=== PATIENT | female | born 1975 | race Caucasian/White ===

== ENCOUNTER 2022-05-08 13:45 | Outpatient (CLI) | payer BC, SELFPAY ==
--- OUTSIDE RECORDS SUMMARY | 2022-05-08 13:49 | XMS_ITS | Encounter Summary ---
:1975 Author Organization [facility] Address [address] [place] [address] Care Team Providers Name Role Phone Brain Benoit MD Primary Care Provider Reason for Visit Reason Comments EDEMA Encounter Details Date Type Department Care Team Description 01/28/2012 Office Visit [facility] Aide Smart Pain, joint, hand (Primary Dx); Medicine Swelling of limb [address] [place] [phone] Social History Tobacco Use Types Packs/Day Years Used Date Smoking Tobacco: Never Assessed Sex Assigned at Date Recorded Not on file documented as of this encounter Last Filed Vital Signs Vital Sign Reading Time Taken Comments Blood Pressure 105/68 01/28/2012 6:15 PM CDT Pulse 68 01/28/2012 6:15 PM CDT Temperature 37 ??C (98.6 ??F) 01/28/2012 6:15 PM CDT Respiratory Rate 16 01/28/2012 6:15 PM CDT Oxygen Saturation - - Inhaled Oxygen Concentration - - Weight - - Height - - Body Mass Index - - documented in this encounter Progress Notes Aide Smart - 01/29/2012 8:03 AM CDT Subjective: Chief complaint: Chief Complaint Patient presents with ??? Edema hands and feet last Friday Arelis Mckenna is an 36 y.o. female who presents to the clinic for evaluation of joint pain x1 week. Patient reports one week ago she noticed swelling in her hands between her fingers and feet the next dayshe had pain in the joints of her hands, wrists elbows feet and ankles. She denies any pain or problem in her back, shoulders or hips. She started taking Zyrtec incase she had allergies without relief then she tried taking Advil, Tylenol, and Aleve without relief she finally took Vicodin which provided some relief. She reports as the week went on swelling decrease and is normal now but she continued to have joint pain now the pain is only in her finger joints. She denies a history of arthritis, joint pain, autoimmune disease or edema. She reports her mother has osteoarthritis otherwise no family history of rheumatoid arthritis or autoimmune diseases. Associated symptoms include 1 week ago she had a sore throat, fever with a negative strep test, these symptoms have since resolved, denies fever, night sweats or weight loss. She denies noticing a rash or change in skin. She reports having insect bits occasionally she is outside often, but no tick bites that she noticed. Denies history of chronic pain. She is UTD on immunizations. She reports she is very health conscious she eats all her organic foods she does not eat meat, dairyor eggs but she does supplement with vitamins. 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 She lives with her and children. Denies tobacco or alcohol use. Review of Systems - History obtained from the patient General ROS: negative Psychological ROS: negative Ophthalmic ROS: negative ENT ROS: negative Allergy and Immunology ROS: negative Hematological and Lymphatic ROS: negative Endocrine ROS: negative Respiratory ROS: negative Cardiovascular ROS: negative Gastrointestinal ROS: negative Genito-Urinary ROS: negative Musculoskeletal ROS: positive for - joint pain, joint stiffness and joint swelling Neurological ROS: negative Dermatological ROS: negative Other than above, complete review of systems are negative. History reviewed. No pertinent past medical history. Medications reviewed in EMR Adverse drug reactions: No known drug allergies and Other Immunizations: Immunization History Administered Date(s) Administered ??? H1N1 Influenza Virus 0.5ml 09/12/2009 ??? Influenza LAIV (2-49 yrs) 07/14/2009 ??? TDAP (Boostrix) 02/25/2009 Vital signs: BP 105/68 Pulse 68 Temp(Src) 98.6 ??F (37 ??C) (Oral) Resp 16 Objective: Vital signs reviewed General- Patient in no acute distress, well-groomed, pleasant, appears healthy. Does not appear anxious or depressed. Head- normocephalic, atraumatic Eyes- PERRL, lids and sclera normal Ears- TM intact, opaque, non bulging, canal normal. Nose- patent, no rhinorrhea Oropharynx- no thrush or exudate noted. Tonsils nonenlarged, uvula midline. Neck- supple, no adenopathy, no thyromegaly Lungs- clear to ausculation bilaterally. Cardiovascular- regular rate and rhythm. Normal S1 and S2. No S3, S4 or murmurs. CR <2 sec. Abdomen- positive bowel sounds, nontender, nondistended, soft, no organomegaly. Extremities- no cyanosis, clubbing, or edema. Peripheral pulses intact of radial pulse and DP pulse. Skin- warm and dry, no rashes noted. Neurological- alert and oriented. Cranial nerves II-XII grossly intact. Sensation intact to light touch. Strength 5/5 bilaterally. Patellar DTR 2+ Musculoskeletal- No visual deformity of hand. no joint swelling redness or warmth. Tenderness with palpation over the DIP and PIP joints, normal flexion, tenderness with extension of phalanges. No tenderness in MCP joints or wrists. Weakness noted bilaterally with nursing educator strength. Normal active and passive range of motion of wrist and elbow. Foot, knee and ankle exam essentially normal joints are nontender no swelling or erythema normal active and passive range of motion, 5 of 5 strength bilaterally of lower extremities. Lab/imaging: Pending RF, DINESH, CMP, Lyme Disease screen, ESR, vitamin D Assessment: Joint pain, acute Plan: Discussed differential diagnosis and lab work with the patient, will check RF, DINESH, kidney, liver, electrolytes, lyme screening. She has a history of low vitamin D will recheck. Discussed possibility of joint pain after viral illness which generally will resolve with symptomatic care. Patient agrees with the plan. She request pain medication. Rx Vicodin 5-500mg PO 1-2 tablets at night for night time pain, Rx for 15 tablets. Side effect profile reviewed, sedation precaution. No work or driving with medication, no extra tylenol with medication. Use only for break through pain due to addictive properties. Use ibuprofen or tylenol as directed for pain, may use cool pack for pain, especially after typing. Encouraged fluids, rest. If lab results are normal and pain continues I will refer the patient torheumatology. RTC p.r.n. if not gradually improving, sooner p.r.n.. The patient was discharged in stable condition. All questions answered. Patient in agreement with the plan. documented in this encounter Plan of Treatment Not on filedocumented as of this encounter Visit Diagnoses Diagnosis Pain, joint, hand - Primary Pain in joint, hand Swelling of limb documented in this encounter Care Teams Taxation Inspector Relationship Specialty Start Date End Date Brain Benoit MD PCP - General 01/01/11 04/10/14 [address] [place] [address] documented as of this encounter
--- OUTSIDE RECORDS SUMMARY | 2022-05-08 13:49 | XMS_ITS | Encounter Summary ---
:1975 Author Organization [facility] Address [address] [place] [address] Care Team Providers Name Role Phone Brain Benoit MD Primary Care Provider Encounter Details Date Type Department Care Team Description 05/25/2010 Office Visit [facility] Una Cosby APRN, [facility] [address] [address] [place] [address] [place] [address] [phone] (Wo rk) Social History Tobacco Use Types Packs/Day Years Used Date Smoking Tobacco: Never Assessed Sex Assigned at Date Recorded Not on file documented as of this encounter Last Filed Vital Signs Vital Sign Reading Time Taken Comments Blood Pressure 104/78 05/25/2010 3:27 PM CDT Pulse 68 05/25/2010 3:27 PM CDT Temperature 36.7 ??C (98.1 ??F) 05/25/2010 3:27 PM ORAL C: 3 6.7 C CDT Respiratory Rate - - Oxygen Saturation - - Inhaled Oxygen Concentration - - Weight 67.6 kg (148 lb 15.8 05/25/2010 3:27 PM C: 67.6k g oz) CDT Height - - Body Mass Index 22 04/17/2010 3:08 PM CDT documented in this encounter Progress Notes Una Cosby APRN, TABLEAU ANALYST - 05/25/2010 12:01 AM CDT Progress Notes signed by MARSHA Lorenzo at 06/21/10 1031 Author: MARSHA Lorenzo Service: (none) Author Type: (none) Filed: 01/20/11 0053 Note Time: 05/25/10 0001 Status: Signed Chief Deputy Clerk/Bailiff: MARSHA Lorenzo (Nurse Practitioner) NAME: ARELIS MCKENNA MR#: [id number] ACCT: [id number] VISIT: [id number] DICTATING CLINICIAN: MARSHA Lorenzo CONFIRM #: [id number] LOC: 506 CLINIC PROGRESS NOTE DATE OF VISIT: 05/25/2010 : 1975 A 34-year-old woman in clinic today with concerns regarding sinus congestion. HISTORY OF PRESENT ILLNESS: Arelis said that her symptoms started about 5 days ago when she started having some sinus pressure and had a mild headache. Her throat felt kind of swollen. No painful swallowing. Some ear congestion and just over the last 2 days she says sometimes when she takes a real deep breath she has kind of a burning sensation in the substernal airway. MEDICATIONS: Not using any wrle-tiv-msnglqo medications right now. Loestrin FE, fluoxetine. REVIEW OF SYSTEMS: No fever, chilling or body aches. PAST MEDICAL HISTORY: No history of chronic illness. MEDICATION ALLERGIES: None known. SOCIAL HISTORY: with children. Nonsmoker. OBJECTIVE: VITAL SIGNS: Blood pressure 104/78, temperature 98.1, pulse 68, weight 149. GENERAL: Arelis does not appear acutely ill. She is alert and oriented x3. SKIN: Warm, dry and nondiaphoretic. HEENT: EYES: Conjunctivae clear and JULIA. EARS: Left TM somewhat injected. No distortion of landmarks. No canal erythema or edema. No tragus or pinna pain. Right TM pearly romeo without distortion. No canal involvement, tragus, or pinna pain. Nasal passages non-hyperemic. Some clear coryza noted. No frontal or maxillary tenderness with percussion. Posterior pharynx without erythema, edema, or tonsillar enlargement. NECK: Supple without lymphadenopathy. No thyroid enlargement, nodularity or tenderness. LUNGS: Clear. No wheezes, rales or rhonchi. CARDIOVASCULAR: S1, S2. Rate and rhythm regular without murmur. ASSESSMENT: Probable allergic rhinitis. PLAN: She is encouraged to begin use of vthw-sew-ujtwofc either loratadine or Zyrtec once daily over the course of the next 10 days to 2 weeks to see if that makes a difference for her. Mucinex 600 mg 1 tablet twice a day. Increase fluids. Warm, steamy showers and use Advil or Aleve as comfort measure. She is in agreement with this plan. LAE:MEDQ C: CONFIRM #: [id number] documented in this encounter Plan of Treatment Not on filedocumented as of this encounter Visit Diagnoses Not on filedocumented in this encounter Care Teams Expansion Joint Finisher Relationship Specialty Start Date End Date Brain Benoit MD PCP - General 01/01/11 04/10/14 [address] [facility] [place] [address] documented as of this encounter
--- OUTSIDE RECORDS SUMMARY | 2022-05-08 13:49 | XMS_ITS | Encounter Summary ---
:1975 Author Organization [facility] Address [address] [place] [address] Care Team Providers Name Role Phone Brain Benoit MD Primary Care Provider Reason for Visit Reason Comments Other Encounter Details Date Type Department Care Team Description 02/20/2011 Telephone [facility] Brain Vo MD Other [address] [facility]. [address] [place] [address] [place] [address] [phone] (Wo rk) Social History Tobacco Use Types Packs/Day Years Used Date Smoking Tobacco: Never Assessed Sex Assigned at Date Recorded Not on file documented as of this encounter Progress Notes Kathy Castañeda RN - 02/20/2011 10:14 AM CDT CLINICIAN FOLLOW-UP: none IMPRESSION: Neurologic Deficit. SYMPTOMS: Patient calling; reports that she sustained a bug bite to her left hip on 02/16/11, her hip did become swollen and tender to touch, pt [facility] few months back, pt did start this rx on 02/17/11, swelling in her hip has decreased, yesterday pt started to notice numbness in her right leg, that comes and goes, denies weakness or numbness in her face or arms, no other sx's. Denies 911/ER symptoms Problem List: reviewed in electronic medical record. CARE ADVICE: Care deferred to appt Advised to call back if any of the following occur: symptoms worsen or persist, any other questions or concerns. PLAN: SEE WITHIN 2 HOURS Patient/Caller agrees with plan and denies additional questions. References Used: [facility] Adult Telephone Protocols--Neurologic Deficit. Call Complete. *SH~THOMP~NEURODEF ~ Created on 20Feb2011 10:14am by KATHY CASTAÑEDA documented in this encounter Plan of Treatment Not on filedocumented as of this encounter Visit Diagnoses Not on filedocumented in this encounter Care Teams Dining Service Supervisor Relationship Specialty Start Date End Date Brain Benoit MD PCP - General 01/01/11 04/10/14 [facility] [place] [address] documented as of this encounter
--- OUTSIDE RECORDS SUMMARY | 2022-05-08 13:49 | XMS_ITS | Clinical Summary ---
:1975 Author Organization [facility] Address [address] [place] [address] Care Team Providers Name Role Phone Doron Crow Primary Care Provider Source Comments You are receiving this document as you are listed as the primary care provider,follow-up provider, or the patient has been referred to you for consultation.This is in compliance with the Medicare and Medicaid EHR Incentive Program,which states Providers who transition their patient to another setting of careor provider of care or refers their patient to another provider of care shouldprovide summarycare record for each transition of care or referral. [employer] Allergies Active Allergy Reactions Severity Noted Date Comments Other 02/16/2009 PN: -eucalyptus (Facial swelling) Medications Medication Sig Dispensed Refills Start Date End Date Status Multiple Take 1 tablet 0 2011 Activ e Vitamins-Minerals (MULTI by mouth daily FOR HER OR) (every 24 hours). cholecalciferol (AKA Take 1,000 0 02/19/2012 Active VITAMIN D3) 1000 UNITS Units by mouth tablet daily (every 24 hours). ibuprofen (MOTRIN) 400 MG Take 400 mg by 0 2 Active tablet mouth every 6 hours as needed. doxycycline (VIBRAMYCIN) Take 50 mg by 0 Active 50 MG capsule mouth two times a day. ALBUterol sulfate HFA 108 Inhale 1-2 0 Active (90 BASE) MCG/ACT inhaler Puffs every 4 hours as needed for Wheezing. Active Problems Problem Noted Date Migraine 02/19/2012 Overview: Migraine, light induced. Immunizations Name Administration Dates Next Due H1n1 Miv Sanofi 3+ Yr (Injected) 09/12/2009 HepA-HepB (TWINRIX, 18+ yrs) 04/28/2012, 02/19/2012 Influenza IIV4 (Quadrivalent) 0.5mL (90968) 07/19/2016 Influenza LAIV (Nasal, 2-49 yrs) 07/14/2009 TDAP (BOOSTRIX) 02/25/2009 Family History Medical History Relation Name Comments Hypertension Father Hypertension Mother Coronary Artery Disease Paternal Grandfather Hypertension Paternal Grandfather Stroke Paternal Grandfather Coronary Artery Disease Paternal Grandmother Hypertension Paternal Grandmother Stroke Paternal Grandmother Diabetes, Type II Paternal Uncle Cancer Negative Family History Relation Name Status Comments Father Alive Mother Alive Brother 1 Alive Brother 2 Alive Brother 3 Alive Daughter 1 Elisa Alive 1997 (from 1st m ) Daughter 2 Edita Alive 2003 Maternal Grandfather Maternal Grandmother Alive Paternal Grandfather Paternal Grandmother Paternal Uncle Sister Alive Son Raul Alive 1999 (from m ) Social History Tobacco Use Types Packs/Day Years Used Date Smoking Tobacco: Former Cigarettes 0.3 2 Quit : 09/29/1998 Smokeless Tobacco: Never Comments: Quit smoking: Alcohol Use Standard Drinks/Week Comments Yes 1 (1 standard drink = 0.6 oz pure Alcoho lic Drinks/day: Amount:1-2 alcohol) drinks; Freq:=< Flakito hly; Alcohol Habits Answer Date Recorded How often do you have a drink Not asked containing alcohol? How many drinks containing alcohol Not asked do you have on a typical day when you are drinking? How often do you have six or more Not asked drinks on one occasion? Comment: Alcoholic Drinks/day: Amount:1-2 016 drinks; Freq:=< Monthly; Sex Assigned at Date Recorded Not on file Last Filed Vital Signs Vital Sign Reading Time Taken Comments Blood Pressure 110/80 07/19/2016 3:03 PM CDT Pulse 72 07/19/2016 3:03 PM CDT Temperature 37.1 ??C (98.8 ??F) 04/11/2014 3:55 PM CDT Respiratory Rate 20 09/17/2012 4:38 PM SUBSTATION DESIGN DRAFTSPERSON Oxygen Saturation 98% 09/17/2012 4:38 PM SUBSTATION DESIGN DRAFTSPERSON Inhaled Oxygen Concentration - - Weight 77.1 kg (170 lb) 07/19/2016 3:03 PM CDT Height 174 cm (5' 8.5) 09/16/2012 8:53 AM SUBSTATION DESIGN DRAFTSPERSON Body Mass Index 25.47 09/16/2012 8:53 AM SUBSTATION DESIGN DRAFTSPERSON Plan of Treatment Health Maintenance Due Date Last Done Comments Colon Cancer Screening Plan 1975 Due Hep C Screening (Preventive 1975 Services) COVID-19 Vaccine (#1) 03/27/1977 HIV Screening (Preventive 1992 Services) Adult Preventive Visit 1994 Cervical Cancer Screening Due 04/14/2010 04/13/2010, 02/25/2009 HepA (3 of 3 - Hep A Twinrix 09/28/2012 04/28/2012, risk 3-dose series) 02/19/2012 HepB (3) 09/28/2012 04/28/2012, 02/19/2012 DTaP/Tdap/Td (2 - Tdap) 02/25/2019 02/25/2009 Cholesterol 2021 02/25/2009 Influenza (#1) 2022 07/19/2016, 07/14/2009 Zoster/Shingles (1 of 2) 2026 HPV Vaccine Aged Out No longer eligib le based on patient's age to complete this to pic Hib Aged Out No longer eligib le based on patient's age to complete this to pic IPV (Polio) Aged Out No longer eligib le based on patient's age to complete this to pic MCV4 Aged Out No longer eligib le based on patient's age to complete this to pic Pneumococcal Aged Out No longer eligib le based on patient's age to complete this to pic Insurance Payer Benefit Plan / Subscriber ID Effective Dates Phone Addre ss Type Group BCBS BCBS CCS BLUE [id number] 2007-Present [address] [address] [place] [id number] (Home) [place] [phone] [facility] [place] ([place] [id number] Arelis Mckenna Personal/Family Self 1975 [id number] (Home) [place] [phone] [place] ([place]) [phone] Care Teams Pastry Cook Relationship Specialty Start Date End Date Doron Crow MBBS PCP - General 04/11/14 [address] [facility] [place] [address]
--- OUTSIDE RECORDS SUMMARY | 2022-05-08 13:49 | XMS_ITS | Encounter Summary ---
:1975 Author Organization [facility] Address [address] [place] [address] Care Team Providers Name Role Phone Brain Benoit MD Primary Care Provider Reason for Visit Reason Comments IMMUNIZATIONS Encounter Details Date Type Department Care Team Description 04/28/2012 Nursing Visit [facility], Talia Perez Need fo r hepatitis A Medicine and B vaccination [id number] (Primary Dx) [place] [phone] Social History Tobacco Use Types Packs/Day Years Used Date Smoking Tobacco: Never Assessed Sex Assigned at Date Recorded Not on file documented as of this encounter Plan of Treatment Not on filedocumented as of this encounter Visit Diagnoses Diagnosis Need for hepatitis A and B vaccination - Primary Need for prophylactic vaccination and in oculation against viral hepatitis documented in this encounter Care Teams Sealant Mixer Relationship Specialty Start Date End Date Brain Benoit MD PCP - General 01/01/11 04/10/14 [facility]5 [place] [address] documented as of this encounter
--- OUTSIDE RECORDS SUMMARY | 2022-05-08 13:49 | XMS_ITS | Encounter Summary ---
:1975 Author Organization [facility] Address [address] [place], [place] [address] [place] [address] Care Team Providers Name Role Phone Brain Benoit MD Primary Care Provider Encounter Details Date Type Department Care Team Description 04/17/2010 PN Conversion Only ATHOL CONVERSION Yoseph Rabago [address] [place] [address] [address] [facility] [place] [address] [place] [phone] (Wo rk) Social History Tobacco Use Types Packs/Day Years Used Date Smoking Tobacco: Never Assessed Sex Assigned at Date Recorded Not on file documented as of this encounter Plan of Treatment Not on filedocumented as of this encounter Visit Diagnoses Not on filedocumented in this encounter Care Teams Laborer [employer] Relationship Specialty Start Date End Date Brain Benoit MD PCP - General 01/01/11 04/10/14 [address] [place] [address] documented as of this encounter
--- OUTSIDE RECORDS SUMMARY | 2022-05-08 13:49 | XMS_ITS | Encounter Summary ---
:1975 Author Organization [facility] Address [address] [place] [address] Care Team Providers Name Role Phone Brain Benoit MD Primary Care Provider Reason for Visit Reason Comments LAB RESULTS Encounter Details Date Type Department Care Team Description 09/16/2012 Telephone [facility] Nghia Dan MD LAB RESULTS [address] [facility]. [address] [place] [address] [place] [address] [phone] Social History Tobacco Use Types Packs/Day Years Used Date Smoking Tobacco: Never Assessed Sex Assigned at Date Recorded Not on file documented as of this encounter Nursing Notes Jennie Rueda - 09/16/2012 2:33 PM CST Called and spoke to pt. Informed pt. per Dr. Mcwilliams: she has tested positive for type B influenza infection. As we discussed at her visit, we are out of the time window where medicine like Tamiflu willhelp. Non-caffeinated fluids, tylenol and ibuprofen as needed for fever/chills/aches, good hand washing/no sharing cups or spoons/no kissing. Stay home until fever free for 24 hours without the help of medicine. Pt. verbalized understanding and agrees with plan. No questions at this time. H BOOKER Amber Burgos RN - 09/16/2012 12:34 PM CST Message copied by AMBER BURGOS on FriSep 16, 2012 12:34 PM ------ Message from: NGHIA MCWILLIAMS Created: FriSep 16, 2012 12:27 PM Call pt at [phone] and inform her that she has tested positive for type B influenza infection.As we discussed at her visit, we are out of the time window where medicine like Tamiflu will help. Non-caffeinated fluids, tylenol and ibuprofen as needed for fever/chills/aches, good hand washing/no sharing cups or spoons/no kissing. Stay home until fever free for 24 hours without the help of medicine documented in this encounter Plan of Treatment Not on filedocumented as of this encounter Visit Diagnoses Not on filedocumented in this encounter Care Teams Wooden Box Maker Relationship Specialty Start Date End Date Brain Benoit MD PCP - General 01/01/11 04/10/14 [facility] [place] [address] documented as of this encounter
--- OUTSIDE RECORDS SUMMARY | 2022-05-08 13:49 | XMS_ITS | Encounter Summary ---
:1975 Author Organization [email or web address] Address [address] [place] [address] Care Team Providers Name Role Phone Brain Benoit MD Primary Care Provider Reason for Visit Reason Comments LAB RESULTS Encounter Details Date Type Department Care Team Description 01/29/2012 Telephone [facility] Aide Dunn LAB RESULTS [id number] [place] [address] Social History Tobacco Use Types Packs/Day Years Used Date Smoking Tobacco: Never Assessed Sex Assigned at Date Recorded Not on file documented as of this encounter Nursing Notes Tereza Patrick - 01/30/2012 2:46 PM CDT Left voice message for pt to call back if she did not understand the instructions Aide Smart PA-C had left on her voice mail in regards to the Vitamin D. Instructed pt to call our main number and ask for nurse triage. PHT Aide Smart - 01/29/2012 4:20 PM CDT Left a message on the patients cell phone in regard to lab results. They are all essentially normal other than low vitamin D. I did advise the patient to take vitamin D and if she would like a prescription strength to call nurse triage. I am still waiting for DINESH, but it appears to be a viral joint pain which will likely resolve over time. Will send results in the mail. documented in this encounter Plan of Treatment Not on filedocumented as of this encounter Visit Diagnoses Not on filedocumented in this encounter Care Teams Airport Operations Supervisor Relationship Specialty Start Date End Date Brain Benoit MD PCP - General 01/01/11 04/10/14 [address] [facility] [place] [address] documented as of this encounter
--- OUTSIDE RECORDS SUMMARY | 2022-05-08 13:49 | XMS_ITS | Encounter Summary ---
:1975 Author Organization [facility] Address [address] [place] [address] Care Team Providers Name Role Phone Brain Benoit MD Primary Care Provider Encounter Details Date Type Department Care Team Description 04/17/2010 PN Conversion Only [place] CONVERSION Yoseph Rabago [address] [facility] [place] [address] [address] [facility] [address] [place], [place] [address] (Wo rk) Social History Tobacco Use Types Packs/Day Years Used Date Smoking Tobacco: Never Assessed Sex Assigned at Date Recorded Not on file documented as of this encounter Plan of Treatment Not on filedocumented as of this encounter Procedures Procedure Name Priority Date/Time Associated Diagnosis Comme nts TEST Routine 04/17/2010 2:50 PM Results for this (URINE) CDT procedure are i n the results section. SURGICAL REN [facility] Routine 04/17/2010 7:00 AM Re sults for this NICOLLET CDT procedure are i n the results section. documented in this encounter Results Test (Urine) (04/17/2010 2:50 PM CDT) [facility] gist Method Time Signature Urine Negative No normal HP CONVERSION Test range Specimen (Source) Anatomical Collection Method Collection Time Re ceived Time Location / / Volume Laterality 04/17/2010 2:50 PM CDT Yoseph Rabago MD LAB_1 Performing Organization Address City/State/ZIP Code Phon e Number HP CONVERSION Pathology Report (04/17/2010 7:00 AM CDT) [facility] gist Method Time Signature Path: ?Final SURGICAL PATHOLOGY REP ORT HP CONVERSION Pathology #: [id number] ? Date Obtained: 04/17/2010 ?Date Received: 04/18/2010 DIAGNOSIS: ?A) Endocervix, curettage: ?- No evidence of glandular hyperplasia or malignanc y in the ?endocervical fragments. ?B) Endometrium, biopsy: ?1. Proliferative endometrium with abundant stromal collapse and ?degeneration. ? 2. No evidence of glandular hyperplasia or malignancy . ?Reynaldo WILEY ? (electronic signatur e) ? 04/19/2010 ??16:1 7 CLINICAL NOTES: ? Abnormal uterine bleeding ORGAN/TISSUE SITE: ? Endocervical curetting/Endometrial biopsy GROSS DESCRIPTION: ?A) ??Received in formalin labeled ECC is a 1.6 x 1. 4 x 0.3 cm ? aggregate of irregular, soft to rubbery, mendez-wh ite to ? mendez-brown tissue fragments with clotted blood and mucus, which ? is entirely submitted in 1 cassette labeled 7 250 A. ?LUNMA ?B) ??Received in formalin labeled biopsy is a 1.8 x 1.6 x 0.3 cm ? aggregate of clotted blood admixed with mucus a nd mendez-pink ? soft tissue fragments, which are submitted in t cecilia in 1 ? cassette labeled 7250 B. ? LUNMA MICROSCOPIC DESCRIPTION: ? A-B) Microscopic examination performed. ?End of Report Specimen Anatomical Location Collection Method Collection Time Received Time (Source) / Laterality / Volume ENDOMETRIAL 04/17/2010 7:00 04/17/2010 7 :00 STRUCTURE / Unknown AM CDT AM CDT ENDOMETRIAL 04/17/2010 7:00 04/17/2010 7 :00 STRUCTURE / Unknown AM CDT AM CDT Yoseph Rabago MD LAB_1 Performing Organization Address City/State/ZIP Code Phon e Number HP CONVERSION documented in this encounter Visit Diagnoses Not on filedocumented in this encounter Care Teams Machine Erector Relationship Specialty Start Date End Date Brain Benoit MD PCP - General 01/01/11 04/10/14 [facility]5 [facility] [place] [id number] documented as of this encounter
--- OUTSIDE RECORDS SUMMARY | 2022-05-08 13:49 | XMS_ITS | Encounter Summary ---
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 [place] [address] [phone] [place], [place] [address] Social History Tobacco Use Types Packs/Day Years Used Date Smoking Tobacco: Never Assessed Sex Assigned at Date Recorded Not on file documented as of this encounter Last Filed Vital Signs Vital Sign Reading Time Taken Comments Blood Pressure 110/84 04/11/2014 3:55 PM CDT Pulse - - Temperature 37.1 ??C (98.8 ??F) 04/11/2014 3:55 PM CDT Respiratory Rate - - Oxygen Saturation - - Inhaled Oxygen Concentration - - Weight 72.6 kg (160 lb) 04/11/2014 3:55 PM CDT Height - - Body Mass Index 23.97 09/16/2012 8:53 AM BATHING SUIT MAKER documented in this encounter Progress Notes Sherine Mack, MYRTLE, KARINA - 04/11/2014 5:58 PM CDT Subjective: Chief Complaint Patient presents with ??? Chest Injury Sternum. Hurts to laugh, and reach. Can lay on side. DOI 04/06/14 ??? Shortness of Breath (SOB) Feels it is hard to get a good breath. Arelis Mckenna is a 38 y.o. female who presents for evaluation of chest wall pain. This has been presentsince 04/06/14 when she fell while rollerblading with her daughter. States she has felt intermittentlySOB, some times the pain is worse with a deep breath. She believes she only landed on her bottom anddoes not remember hitting her chest on anything but states she has a lot of pain when she palpates the anterior chest. Not using anything OTC. Medical History Review: Patient's medications, allergies, past medical, surgical and problem lists along with social and family histories were updated, reviewed and reconciled as needed in the EMR. Review of Systems Pertinent ROS as listed in HPI. Objective: GEN: Well Appearing, NAD. Filed Vitals: 04/11/14 1555 BP: 110/84 Temp: 98.7 ??F (37.1 ??C) TempSrc: Oral Weight: 160 lb (72.576 kg) HEENT: AT/NC, conjunctiva clear, PERRLA, auricles in alignment, TMs pearly romeo. Sinus nontender. Neck is supple, no lymphadenopathy or masses, No Thyromegaly. Pharynx clear. CHEST: Lungs are clear to auscultation bilaterally, no crackles or wheezes, good air exchange. She has pain with palpation of the anterior sternum and she also has some pain with deep inspirations. CVS: RRR, no murmurs, strong heart sounds and pulses, no JVD, no carotid bruits. EXT: Warm, well perfused, no edema SKIN: No worrisome lesions. No rash. No bruising. Assessment: Diagnosis (ICD9) and Associated Orders ICD-9-CM 1. Chest wall injury 959.11 CT Chest W Plan: 1. We discuss that she likely sustained some soft tissue injury during the fall and it is reassuringthat the pain is reproduced with movement or palpation. I recommend either a CXR or chest CT due to the trauma and she would like to proceed with a chest CT. I will call her with results. Recommended symptomatic cares with ice packs, NSAIDs, gentle stretching. Addendum: I telephone patient to notify her of normal chest CT at 1800 per results below and answered all question she had. Symptomatic care for now. Follow-up as needed. Imaging: CT Chest W Indication: Chest wall pain, fell while skating . Technique: Scan was obtained after the injection of 100 cc of Omnipaque. Findings: No pneumothorax or rib fracture. No infiltrates or congestion. No mass appear no pleural effusion. Adrenal glands are normal. Aorta also appears normal. Impression: No significant abnormality in the CT scan of the chest. No fracture or pneumothorax. Dictated by Pepper Veliz MD @ Apr 11 2014 5:47PM Signed by Dr. Pepper Veliz @ Apr 11 2014 5:47PM documented in this encounter Plan of Treatment Not on filedocumented as of this encounter Visit Diagnoses Diagnosis Chest wall injury - Primary Other injury of chest wall documented in this encounter Care Teams Director Physical Therapy Relationship Specialty Start Date End Date Doron Crow MBBS PCP - General 04/11/14 14[address] [facility] [place] [address] documented as of this encounter
--- OUTSIDE RECORDS SUMMARY | 2022-05-08 13:49 | XMS_ITS | Encounter Summary ---
:1975 Author Organization [facility] Address [address] [place] [address] Care Team Providers Name Role Phone Doron Crow Primary Care Provider Reason for Referral Therapies (Routine) - Closed Specialty Diagnoses / Procedures Referred By Contact Refer red To Contact Diagnoses Knee pain, unspecified chronicity, unspecified laterality Doron Crow, [facility] [address] [facility] [address] [place] [address] [place] [address] Referral ID Status Reason Start Date Expiration Date Visits Requ ested Visits Authorized [id number] Closed 07/22/2016 09/20/2016 1 1 Scheduling Instructions If scheduling assistance is needed, plea se inquire with the medical office staff upon exiting your appointment or contact the ordering clinic for recommended locations. This recommended service/s may not be co dorie by your insurance coverage. To find out your specific benefit coverage, please c all the number on your insurance card. Reason for Visit Reason Onset Date Comments Provider Orders 07/22/2016 Encounter Details Date Type Department Care Team Description 07/22/2016 Telephone [facility] Cain Unger MD Provider Orders [id number] [place] [address] [place] [address] [phone] (Wo rk) Social History Tobacco Use Types [...] documented as of this encounter Nursing Notes Adelaide Martini LPN - 07/22/2016 3:47 PM CDT Order faxed to [facility] to fax # provided. Patient notified. Doron Crow MBBS - 07/22/2016 3:40 PM CDT Order placed. Please fax to requested number Shameka Hameed - 07/22/2016 1:48 PM CDT Order in orders entry as physical therapy to an outside location. You can make in comments ORDERS ONLY. Doron Crow MBBS - 07/22/2016 1:20 PM CDT If this is NOT a referral how should we write for this order? Teresa Vogel RN - 07/22/2016 1:14 PM CDT Pt calling for PT orders for both knees--wants to go to [facility]. Seen by Dr Rios on 07-19-16. Called [facility]-we can give orders but not insurance referral. Pt states that her 's PT was covered. Advised need check with insurance. Fax orders to [facility] - - . Zuly Johnson - 07/22/2016 1:06 PM CDT Needs orders for PT for knee pain faxed to [facility] - - . documented in this encounter Plan of Treatment Scheduled Referrals Name Type Priority Associated Diagnoses Order S chedule Physical Therapy Referral Routine Knee pain, unspecified O rdered: 07/22/2016 chronicity, unspecified laterality documented as of this encounter Visit Diagnoses Diagnosis Knee pain, unspecified chronicity, unspe cified laterality - Primary documented in this encounter Care Teams Boot Maker Relationship Specialty Start Date End Date Doron Crow MBBS PCP - General 04/11/14 [facility]5 [facility] [place] [address] documented as of this encounter
--- OUTSIDE RECORDS SUMMARY | 2022-05-08 13:49 | XMS_ITS | Encounter Summary ---
:1975 Author Organization [facility] Address [address] [place] [address] Care Team Providers Name Role Phone Brain Benoit MD Primary Care Provider Reason for Visit Reason Comments Pharyngitis Fever Encounter Details Date Type Department Care Team Description 09/16/2012 Office Visit [facility] [employer] aLura Mcwilliams Fever, unspecified (Primary Dx); Yasir Broussard MD Sore throat (viral); [id number] [address] [address] [address] (upper respiratory infec tion) [place], [place] [address] [address] [place] [address] [phone] Social History Tobacco Use Types Packs/Day Years Used Date Smoking Tobacco: Never Assessed Sex Assigned at Date Recorded Not on file documented as of this encounter Last Filed Vital Signs Vital Sign Reading Time Taken Comments Blood Pressure 112/70 09/16/2012 8:53 AM SUPERVISOR TELEPHONE INFORMATION Pulse 80 09/16/2012 8:53 AM SUPERVISOR TELEPHONE INFORMATION Temperature 37.3 ??C (99.1 ??F) 09/16/2012 8:53 AM SUPERVISOR TELEPHONE INFORMATION Respiratory Rate 16 09/16/2012 8:53 AM SUPERVISOR TELEPHONE INFORMATION Oxygen Saturation - - Inhaled Oxygen Concentration - - Weight 66.6 kg (146 lb 14.4 oz) 09/16/2012 8:53 AM SUPERVISOR TELEPHONE INFORMATION Height 174 cm (5' 8.5) 09/16/2012 8:53 AM SUPERVISOR TELEPHONE INFORMATION Body Mass Index 22.01 09/16/2012 8:53 AM SUPERVISOR TELEPHONE INFORMATION documented in this encounter Patient Instructions Patient InstructionsLaura Mcwilliams MD - 09/16/2012 9:19 AM CST Increase non-caffeinated fluids Tylenol or Ibupfrofen every 6 hours as needed for fever, body aches, sore throat Good hand washing, no sharing cups or spoons, no kissing We will call you about your flu test RVISOR TELEPHONE INFORMATION documented in this encounter Progress Notes Laura Mcwilliams MD - 09/16/2012 12:27 PM SUPERVISOR TELEPHONE INFORMATION Quick Note: Call pt at [phone] and inform her that she has tested positive for type B influenza infection.As we discussed at her visit, we are out of the time window where medicine like Tamiflu will help. Non-caffeinated fluids, tylenol and ibuprofen as needed for fever/chills/aches, good hand washing/no sharing cups or spoons/no kissing. Stay home until fever free for 24 hours without the help of medicine Laura Mcwilliams MD - 09/16/2012 9:34 AM CST Subjective: Patient ID: Arelis Mckenna is a 36 y.o. female. Chief Complaint: Chief Complaint Patient presents with ??? Pharyngitis (SORE THROAT) painful swallowing ??? Fever since friday, high of 103.3 HPI: 36 year-old woman presents today with fever. Patient reports beginning to feel ill 3 days ago with headache associated with mild dizziness and subsequently developed high fevers with T-max of 103.3, improved with DayQuil or NyQuil. Now with moderate sore throat, frequent dry coughing, nasal congestion, severe fatigue and myalgias. No known sick contacts. Denies abdominal pain, nausea, vomiting, diarrhea but has had significant decrease in appetite. Symptoms seem to have come on somewhat gradually. 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 Current outpatient prescriptions Medication Sig ??? cholecalciferol (VITAMIN D3) 1,000 unit Tab Take 1,000 Units by mouth daily (every 24 hours). ??? FEVERFEW ORAL Take 1 Dose by mouth daily (every 24 hours). ??? MULTIVITS,CA,MINERALS/IRON/FA (MULTI FOR HER ORAL) Take 1 tablet by mouth daily (every 24 hours). ??? niacin 250 mg tablet Take 250 mg by mouth nightly. Take with food. Allergies Allergen Reactions ??? No Known Drug Allergies ??? Other LW Other1: -eucalyptus (Facial swelling) Patient Active Problem List Diagnoses Code ??? Migraine, light induced. 346.90A History Substance Use Topics ??? Smoking status: Former Smoker -- 0.2 packs/day for 2 years Types: Cigarettes Quit date: 09/29/1998 ??? Smokeless tobacco: Never Used Comment: Quit smoking: ??? Alcohol Use: 0.6 oz/week 1 Glasses of wine per week Alcoholic Drinks/day: Amount:1-2 drinks; Freq:=< Monthly; Objective: BP 112/70 Pulse 80 Temp(Src) 99.2 ??F (37.3 ??C) (Oral) Resp 16 Ht 5' 8.5 (1.74 m) Wt 146lb 14.4 oz (66.633 kg) BMI 22.01 kg/m2 LMP 09/11/2012 General: Well-developed, well-nourished, no acute distress, appears stated age, appears tired Head: Normocephalic, atraumatic Eyes: Sclerae and Conjuntivae clear Ears: canals clear bilaterally, bilateral TMs with air-fluid levels Nose: no discharge Throat: Moist mucous membranes, posterior oropharynx with mild erythema, no tonsillar hypertrophy orexudate Neck: No masses, no thyromegaly, no lymphadenopathy Respiratory: Clear to auscultation bilaterally, good air movement bilaterally Cardiovascular: Regular rate rhythm, no murmur Extremities: No clubbing, no cyanosis, no edema Psych: Alert, appropriate affect, answers questions appropriately Assessment: 1. Fever, unspecified (780.60) 2. Sore throat (viral) (462U) 3. URI (upper respiratory infection) (465.9J) Plan: 1. Fever-Tylenol or ibuprofen every 4-6 hours as needed. Likely due to viral URI. Discussed importance of increasing non-caffeinated fluids. Contact precautions discussed. 2. URI-rapid strep negative. Check rapid influenza test and will call patient at [phone] with results 3. Chronic sore throat - start trial of Flonase after current symptoms improve Patient Instructions Increase non-caffeinated fluids Tylenol or Ibupfrofen every 6 hours as needed for fever, body aches, sore throat Good hand washing, no sharing cups or spoons, no kissing We will call you about your flu test Orders Placed This Encounter Procedure ??? Rapid Strep Screen Waived ??? Influenza A,B Antigen Rapid Test ??? N/O Culture Strep, Follow up from Rapid Orders Placed This Encounter Medication ??? fluticasone (FLONASE) 50 mcg/actuation nasal spray Sig: Place 2 sprays into each nostril daily (every 24 hours). Dose is for each nostril. Dispense: 16 g Refill: 1 Laura Mcwilliams MD 09/16/2012 9:27 AM This note has been partially dictated or transcribed and may have minor errors in wording and typographical errors. documented in this encounter Miscellaneous Notes Miscellaneous - 01/17/2017 3:29 AM CDTNotes Recorded by Laura Mcwilliams MD on 09/16/2012 at 12:27 PMCall pt at [phone] and inform her that she has tested positive for type B influenza infection. As we discussed at her visit, we are out of the time window where medicine like Tamiflu will help. Non- caffeinated fluids, tylenol and ibuprofen as needed for fever/chills/aches, good hand washing/no sharing cups or spoons/no kissing. Stay home until fever free for 24 hours without the help of medicine Miscellaneous - 01/17/2017 3:29 AM CDTNotes Recorded by Laura Mcwilliams MD on 09/16/2012 at 12:27 PMCall pt at [phone] and inform her that she has tested positive for type B influenza infection. As we discussed at her visit, we are out of the time window where medicine like Tamiflu will help. Non- caffeinated fluids, tylenol and ibuprofen as needed for fever/chills/aches, good hand washing/no sharing cups or spoons/no kissing. Stay home until fever free for 24 hours without the help of medicine documented in this encounter Plan of Treatment Not on filedocumented as of this encounter Procedures Procedure Name Priority Date/Time Associated Diagnosis Comme nts BETA STREP FOLLOWUP Routine 09/16/2012 9:23 AM Re sults for this SUPERVISOR TELEPHONE INFORMATION procedure are i n the results section. INFLUENZA A AND B Routine 09/16/2012 9:22 AM Fever, unspecifie d Results for this ANTIGEN SUPERVISOR TELEPHONE INFORMATION procedure are i n the results section. RAPID STREP SCREEN Routine 09/16/2012 9:22 AM Sore throat (vir al) Results for this WAIVED SUPERVISOR TELEPHONE INFORMATION procedure are i n the results section. documented in this encounter Results Beta Strep Followup (09/16/2012 9:23 AM SUPERVISOR TELEPHONE INFORMATION) [facility] [employer] Method Time Signature Strep Screen No beta HP CONVERSION hemolytic Strep Group A isolated. Comment: ? ORDERED BY: AIDE KRUEGER SOURCE: Throat ? COLLECTED: ??09/16/12 09:23 ? PLATED: ? 09/16/12 09:23 Culture Strep, Follow up from Rapid Test ?? FINAL ? 09/17/12 09:11 No beta hemolytic Strep Group A isolate d. Specimen (Source) Anatomical Collection Method Collection Time Re ceived Time Location / / Volume Laterality Throat: 09/16/2012 9:23 AM SUPERVISOR TELEPHONE INFORMATION Aide Krueger PA-C LAB_1 Performing Organization Address City/State/ZIP Code Phon e Number HP CONVERSION Rapid Strep Screen Waived (09/16/2012 9:22 AM SUPERVISOR TELEPHONE INFORMATION) Component Value Ref Test Analysis Performed At [facility] [employer] Range Method Time Signature Rapid Strep Test performed HP CONVERSIO N Screen Waived by:lr Rapid Strep Negative for HP CONVERSION Screen Waived Streptococcus group A Comment: ? ORDERED BY: AIDE KRUEGER SOURCE: Throat ? COLLECTED: ??09/16/12 09:22 ? PLATED: ? 09/16/12 09:23 Rapid Strep Screen Waived ?FINAL ? 09/16/12 09:24 ??Test performed by:lr ? Negative for Streptococcus group A Specimen (Source) Anatomical Collection Method Collection Time Re ceived Time Location / / Volume Laterality Throat: 09/16/2012 9:22 AM SUPERVISOR TELEPHONE INFORMATION Narrative HP CONVERSION - 09/16/2012 9:24 AM SUPERVISOR TELEPHONE INFORMATION Performed at [facility], [id number] [place] [address] Transcriptions 01/17/2017 3:29 AM CDTNotes Recorded by Laura Mcwilliams MD on 09/16/2012 at 12:27 PMCall pt at [phone] and inform her that she has tested positive for type B influenza infection. A s we discussed at her visit, we are out of the time window where medicine like Tamiflu will help. Non-caffeinated fluids, tylenol and ibuprofen as needed for fever/chills/aches, good hand washing/no sha ring cups or spoons/no kissing. Stay chetna e until fever free for 24 hours without the help of medicine Laura Mcwilliams MD LAB_1 Performing Organization Address City/State/ZIP Code Phon e Number HP CONVERSION Influenza A and B Antigen (09/16/2012 9:22 AM SUPERVISOR TELEPHONE INFORMATION) [facility] Method Time Signature Influenza A & HP CONVERSION B Ag Influenza A & Influenza B HP CONVERSION B Ag Positive by Rapid Antigen Comment: ? ORDERED BY: LAURA MCWILLIAMS SOURCE: Nares ?COLLECTED: ??09/16/12 09:22 ? PLATED: ? 09/16/12 10:51 Influenza Virus Types A + B Antigen ?FINAL ? 09/16/12 11:14 ? Influenza B Positive by Rapid Antigen Specimen (Source) Anatomical Collection Method Collection Time Re ceived Time Location / / Volume Laterality Nares: 09/16/2012 9:22 AM SUPERVISOR TELEPHONE INFORMATION Narrative HP CONVERSION - 09/16/2012 11:14 AM SUPERVISOR TELEPHONE INFORMATION Performed at [facility], [address] [place] [address] Transcriptions 01/17/2017 3:29 AM CDTNotes Recorded by Laura Mcwilliams MD on 09/16/2012 at 12:27 PMCall pt at [phone] and inform her that she has tested positive for type B influenza infection. A s we discussed at her visit, we are out of the time window where medicine like Tamiflu will help. Non-caffeinated fluids, tylenol and ibuprofen as needed for fever/chills/aches, good hand washing/no sha ring cups or spoons/no kissing. Stay chetna e until fever free for 24 hours without the help of medicine Laura Mcwilliams MD LAB_1 Performing Organization Address City/State/ZIP Code Phon e Number HP CONVERSION documented in this encounter Visit Diagnoses Diagnosis Fever, unspecified - Primary Sore throat (viral) Acute pharyngitis URI (upper respiratory infection) Acute upper respiratory infections of un specified site documented in this encounter Care Teams Railroad Emergency Services Manager Relationship Specialty Start Date End Date Hauschulz, Brain W, MD PCP - General 01/01/11 04/10/14 [address] [facility] [place] [address] documented as of this encounter
--- OUTSIDE RECORDS SUMMARY | 2022-05-08 13:49 | XMS_ITS | Encounter Summary ---
:1975 Author Organization [facility] Address [address] [place], [place] [address] [place] [address] Care Team Providers Name Role Phone Brain Benoit MD Primary Care Provider Encounter Details Date Type Department Care Team Description 01/28/2012 Lab Visit [facility] Pain, joint, hand; [id number] [place] [address] Social History Tobacco Use Types Packs/Day Years Used Date Smoking Tobacco: Never Assessed Sex Assigned at Date Recorded Not on file documented as of this encounter Progress Notes Aide Smart - 01/29/2012 4:23 PM CDT Quick Note: informed patient of results documented in this encounter Miscellaneous Notes Miscellaneous - 11/08/2016 6:36 PM CSTNotes Recorded by Aide Smart PA-C on 01/29/2012 at 4:23 PMinformed patient of results ENT CUTTER Miscellaneous - 11/08/2016 6:36 PM CSTNotes Recorded by Aide Smart PA-C on 01/29/2012 at 4:23 PMinformed patient of results ENT CUTTER Miscellaneous - 11/08/2016 6:36 PM CSTNotes Recorded by Aide Smart PA-C on 01/29/2012 at 4:23 PMinformed patient of results ENT CUTTER Miscellaneous - 11/08/2016 6:36 PM CSTNotes Recorded by Aide Smart PA-C on 01/29/2012 at 4:23 PMinformed patient of results ENT CUTTER Miscellaneous - 11/08/2016 6:36 PM CSTNotes Recorded by Aide Smart PA-C on 01/29/2012 at 4:23 PMinformed patient of results ENT CUTTER documented in this encounter Plan of Treatment Not on filedocumented as of this encounter Procedures Procedure Name Priority Date/Time Associated Comments Diagnosis VITAMIN D 25-HYDROXY, Routine 01/28/2012 6:50 PM Pain, joint, hand Results for this TOTAL CDT procedure are i n the results section. COMP METABOLIC PANEL Routine 01/28/2012 6:50 PM Pain, joint, h and Results for this CDT procedure are i n the results section. RHEUMATOID FACTOR, Routine 01/28/2012 6:50 PM Pain, joint, caal d Results for this QUANT CDT procedure are i n the results section. LYME ANTIBODY (REFLEX Routine 01/28/2012 6:50 PM Pain, joint, hand Results for this TO LYME CONFIRMATORY CDT procedu re are in PANEL) the results section. DINESH SCREEN Routine 01/28/2012 6:50 PM Pain, joint, hand Results for this CDT Swelling of limb procedure a re in the results section. ESR Routine 01/28/2012 6:50 PM Pain, joint, hand Resu lts for this CDT procedure are i n the results section. documented in this encounter Results DINESH Screen (01/28/2012 6:50 PM CDT) Analysis Performed At Patho logist Time Signature Anti-Nuclear Negative Negative HP CONVERSION Ab Specimen Anatomical Collection Method Collection Time Receive d Time (Source) Location / / Volume Laterality 01/28/2012 6:50 PM 2 9:06 CDT PM CDT Aide Smart LAB_1 Performing Organization Address City/State/ZIP Code Phon e Number HP CONVERSION ESR (01/28/2012 6:50 PM CDT) [facility] Method Time Signature Sedimentation Rate 14 0 - 20 HP CONVERSI ON mm/hr Specimen Anatomical Collection Method Collection Time Receive d Time (Source) Location / / Volume Laterality 01/28/2012 6:50 PM 2 6:50 CDT PM CDT Narrative HP CONVERSION - 01/28/2012 7:23 PM CDT Performed at [facility], [id number] [place] [address] Transcriptions 11/08/2016 6:36 PM CSTNotes Recorded by Aide Smart PA-C on 01/29/2012 at 4:23 PMinformed patient of results Aide Smart LAB_1 Performing Organization Address City/State/ZIP Code Phon e Number HP CONVERSION Comp Metabolic Panel (01/28/2012 6:50 PM CDT) [facility] Method Time Signature Aspartate 39 0 - 45 HP CONVERSION Aminotransferase U/L Lab Glucose 85 60 - 100 HP CONVERSION mg/dL Bilirubin Total 0.4 0.2 - 1.2 HP CONVERSION mg/dL Calcium 10.1 8.5 - HP CONVERSION 10.5 mg/dL Sodium 140 137 - 147 HP CONVERSION mEq/L Potassium 4.1 3.5 - 5.2 HP CONVERSION mEq/L Blood Urea Nitrogen 11 5 - 26 HP CONVERS ION mg/dL Albumin 4.8 3.4 - 5.0 HP CONVERSION g/dL Chloride 105 98 - 110 HP CONVERSION mEq/L Alk Phos 81 25 - 135 HP CONVERSION U/L Protein Total, Serum 7.8 5.7 - 8.3 HP CONVER LUCITA g/dL Creatinine Serum 0.8 0.4 - 1.3 HP CONVERSION mg/dL Est GFR Am >60 >60 HP CONVERSI ON mL/min/1. 73m2 Est GFR Non-Afr Am >60 >60 HP CONVERSI ON mL/min/1. 73m2 Comment: Normal>60, moderate decrease 30 - 59, se david decrease 15 - 29, renal failure <15 mL/min/1.73 m2 NOTE: ??Choose the eGFR result above leroy ropriate for the race of the patient. Alanine Aminotransferase 37 4 - 55 U/L HP C ONVERSION Bicarbonate 30 23 - 33 mmol/L HP CONVERSION Specimen Anatomical Collection Method Collection Time Receive d Time (Source) Location / / Volume Laterality 01/28/2012 6:50 PM 2 7:57 CDT PM CDT Narrative HP CONVERSION - 01/28/2012 8:27 PM CDT Performed at [facility], [address] [place] [address] Transcriptions 11/08/2016 6:36 PM CSTNotes Recorded by Aide Smart PA-C on 01/29/2012 at 4:23 PMinformed patient of results Aide Smart LAB_1 Performing Organization Address City/State/ZIP Code Phon e Number HP CONVERSION (ABNORMAL) Vitamin D 25-Hydroxy, Total (01/28/2012 6:50 PM CDT) athologist Signature Vitamin D 25 15 (L) 20 - 80 HP CONVERSION Oh ng/mL Comment: Deficiency = <20 Adequate ??= 20-29 Preferred = 30-50 Uncertain safety = 51-80 High = >80 Specimen Anatomical Collection Method Collection Time Receive d Time (Source) Location / / Volume Laterality 01/28/2012 6:50 PM 2 9:27 CDT AM CDT Transcriptions 11/08/2016 6:36 PM CSTNotes Recorded by Aide Smart PA-C on 01/29/2012 at 4:23 PMinformed patient of results Aide Smart LAB_1 Performing Organization Address City/State/ZIP Code Phon e Number HP CONVERSION Lyme Antibody, and Western Blot(If Needed) (01/28/2012 6:50 PM CDT) athologist Signature Lyme Screen Negative Negative HP CONVERSION Comment: This is screening test. ??If results are equivocal or positive, serum will be sent to Replaced by [facility] for western blot confirmatory testing. Specimen Anatomical Collection Method Collection Time Receive d Time (Source) Location / / Volume Laterality 01/28/2012 6:50 PM 2 9:06 CDT PM CDT Transcriptions 11/08/2016 6:36 PM CSTNotes Recorded by Aide Smart PA-C on 01/29/2012 at 4:23 PMinformed patient of results Aide Smart LAB_1 Performing Organization Address City/State/ZIP Code Phon e Number HP CONVERSION Rheumatoid Factor, Quant (01/28/2012 6:50 PM CDT) P athologist Signature Rheumatoid 5 0 - 14 HP CONVERSION Factor IU/mL Specimen Anatomical Collection Method Collection Time Receive d Time (Source) Location / / Volume Laterality 01/28/2012 6:50 PM 2 8:42 CDT PM CDT Transcriptions 11/08/2016 6:36 PM CSTNotes Recorded by Aide Smart PA-C on 01/29/2012 at 4:23 PMinformed patient of results Aide Smart LAB_1 Performing Organization Address City/[facility]/ZIP Code Phon e Number HP CONVERSION documented in this encounter Visit Diagnoses Diagnosis Pain, joint, hand Pain in joint, hand Swelling of limb documented in this encounter Care Teams Farm Products Shipper Relationship Specialty Start Date End Date Brain Benoit MD PCP - General 01/01/11 04/10/14 [address] [facility] [place] [address] documented as of this encounter
--- OUTSIDE RECORDS SUMMARY | 2022-05-08 13:49 | XMS_ITS | Encounter Summary ---
:1975 Author Organization [facility] Address [address] [place] [address] Care Team Providers Name Role Phone Doron Crow Primary Care Provider Reason for Referral Therapies (Routine) - Closed Specialty Diagnoses / Procedures Referred By Contact Refer red To Contact Diagnoses Patellofemoral [place] [address] [place] [address] Referral ID Status Reason Start Date Expiration Date Visits Requ ested Visits Authorized [id number] Closed 07/19/2016 09/17/2016 1 1 Scheduling Instructions Your provider has recommended an appoint ment with [facility]. You may call [phone] to schedule your a ppointment. If you do not schedule an appointment within the next 1 to 3 busin ess days, we will call you to help arrange your appointment. We suggest you call [employer] about your coverage and benefits for this appointme nt. Reason for Visit Reason Comments Knee Pain or Injury Encounter Details Date Type Department Care Team Description 07/19/2016 Office Visit [facility]il Krause Cain Rios, [place] femoral stress syndrome of both knees (Primary Dx); Medicine Need for influenza vaccination [id number] [address] [place] [address] [phone] Social History Tobacco Use Types Packs/Day Years [...] Pulse 72 07/19/2016 3:03 PM CDT Temperature - - Respiratory Rate - - Oxygen Saturation - - Inhaled Oxygen Concentration - - Weight 77.1 kg (170 lb) 07/19/2016 3:03 PM CDT Height - - Body Mass Index 25.47 09/16/2012 8:53 AM OIL OPERATOR documented in this encounter Progress Notes Cain Rios MD - 07/22/2016 2:02 PM CDT Subjective Arelis Mckenna is a 40 y.o. female who presents with continued knee cap pain. She has had issues for a long time. Pain will typically get worse every time she tries to get back into jogging. Pain is worse with flexion and prolonged sitting. Pain is present bilaterally, but worse on the left. No swelling or mechanical symptoms. No instability. Allergies Allergen Reactions ??? Other PN: -eucalyptus (Facial swelling) Past Medical History Diagnosis Date ??? Depression (HRC) prozac helped, Celexa didn't ??? Exercise-induced asthma (HRC) childhood Past Surgical History Procedure Laterality Date ??? Hx appendectomy Social History Substance Use Topics ??? Smoking status: Former Smoker -- 0.25 packs/day for 2 years Types: Cigarettes Quit date: 09/29/1998 ??? Smokeless tobacco: Never Used Comment: Quit smoking: ??? Alcohol Use: 0.6 oz/week 1 Glasses of wine per week Comment: Alcoholic Drinks/day: Amount:1-2 drinks; Freq:=< Monthly; Family History Problem Relation Age of Onset ??? Coronary Artery Disease Paternal Grandfather ??? Coronary Artery Disease Paternal Grandmother ??? Hypertension Paternal Grandmother ??? Hypertension Paternal Grandfather ??? Stroke Paternal Grandfather ??? Stroke Paternal Grandmother ??? Hypertension Father ??? Hypertension Mother ??? Diabetes, Type II Paternal Uncle ??? Cancer Negative Family History Review of Systems Pertinent items are noted in HPI. Objective BP 110/80 mmHg Pulse 72 Wt 170 lb (77.111 kg) MS: Non antalgic gait, valgus cave with one leg squat, no effusion. Pain with deep flexion. Ligaments intact by exam. Assessment/Plan ICD-10-CM 1. Patellofemoral stress syndrome of both knees M22.2X1 Physical Therapy M22.2X2 2. Need for influenza vaccination Z23 Influenza (Fluarix 0.5, 3+ Yrs) Discussed runner's knee. Biomechanically, she will have some challenges given the angle from her hipto knee. Discussed working on core, and hip strength. Plan to stay active, but modify activity. Willadd some PT as well. Follow up PRN. Over 25 minutes spent on counseling and care coordination, 15 minutes spent face to face discussing the above issues. Cain Rios MD 2:12 PM 07/22/2016 documented in this encounter Plan of Treatment Scheduled Referrals Name Type Priority Associated Diagnoses Order S [facility] Physical Therapy Referral Routine Patellofemoral stress sy ndrome Ordered: 07/19/2016 of both knees documented as of this encounter Visit Diagnoses Diagnosis Patellofemoral stress syndrome of both k nees - Primary Need for influenza vaccination Need for prophylactic vaccination and in oculation against influenza documented in this encounter Care Teams Orthodontic Lab Technician Relationship Specialty Start Date End Date Doron Crow MBBS PCP - General 04/11/14 [address] [place] [id number] documented as of this encounter
--- OUTSIDE RECORDS SUMMARY | 2022-05-08 13:49 | XMS_ITS | Encounter Summary ---
:1975 Author Organization [facility] Address [address] [place], [place] [address] [place] [address] Care Team Providers Name Role Phone Doron Crow Primary Care Provider [phone] Encounter Details Date Type Department Care Team Description 04/12/2014 Notes/Orders Cand[facility] Elliot Nino, Chest wall injury 1415 [facility] . [place] [address] Social History Tobacco Use Types Packs/Day Years Used Date Smoking Tobacco: Never Assessed Sex Assigned at Date Recorded Not on file documented as of this encounter Plan of Treatment Not on filedocumented as of this encounter Procedures Procedure Name Priority Date/Time Associated Diagnosis Comme nts CT CHEST W IV CONT STAT 04/12/2014 Chest wall injury Resu lts for this procedure are i n the results section . documented in this encounter Results CT Chest W IV Cont (04/12/2014) Anatomical Region Laterality Modality Chest, Lung Other Impressions 04/12/2014 12:00 AM CDT Impression: No significant abnormality in the CT sca n of the chest. ?? No fracture or pneumothorax. Narrative 04/12/2014 12:00 AM CDT Procedure done at [facility]: Indication: Chest wall pain, fell while skating ??. Technique: Scan was obtained after the injection of 100 cc of Omnipaque. Findings: No pneumothorax or rib fracture. No infiltrates or congestion. ??No mass appear no pleural effusion. ??Adrenal glands are normal. Aorta also appears normal. Impression: No significant abnormality in the CT sca n of the chest. ?? No fracture or pneumothorax. Procedure Note Conversion, Imr - 03/16/2016Formatting o f this note might be different from the original. Procedure done at [facility] ter: Indication: Chest wall pain, fell while skating . Technique: Scan was obtained after the injection of 100 cc of Omnipaque. Findings: No pneumothorax or rib fracture. No infiltrates or congestion. No mass ap pear no pleural effusion. Adrenal glands are normal. Aorta also appears normal. Impression: No significant abnormality in the CT sca n of the chest. No fracture or pneumothorax. IMPRESSION Impression: No significant abnormality in the CT sca n of the chest. No fracture or pneumothorax. Sherine Mack ELECTRIC STOVE INSTALLER, CREW TRUCK DRIVER RAD CT documented in this encounter Visit Diagnoses Diagnosis Chest wall injury Other injury of chest wall documented in this encounter Care Teams Auto Brake Technician Relationship Specialty Start Date End Date Doron Crow MBBS PCP - General 04/11/14 1415 [facility] [place] [address] documented as of this encounter
--- OUTSIDE RECORDS SUMMARY | 2022-05-08 13:49 | XMS_ITS | Encounter Summary ---
:1975 Author Organization [facility] Address [address] [place] [address] Care Team Providers Name Role Phone Brain Benoit MD Primary Care Provider Encounter Details Date Type Department Care Team Description 01/31/2011 PN Conversion Only Candie 1515 Yoseph Rabago Obstetrics/Gynecolog y MD Rahul 1515 [facility] . [address] [place] [address] [address] [place] [phone] (Wo rk) Social History Tobacco Use Types Packs/Day Years Used Date Smoking Tobacco: Never Assessed Sex Assigned at Date Recorded Not on file documented as of this encounter Plan of Treatment Not on filedocumented as of this encounter Visit Diagnoses Not on filedocumented in this encounter Care Teams Retail Pricing Coordinator Relationship Specialty Start Date End Date Brain Benoit MD PCP - General 01/01/11 04/10/14 [address] [place] [address] documented as of this encounter
--- OUTSIDE RECORDS SUMMARY | 2022-05-08 13:49 | XMS_ITS | Encounter Summary ---
:1975 Author Organization [facility] Address [address] [place] [address] Care Team Providers Name Role Phone Brain Benoit MD Primary Care Provider Encounter Details Date Type Department Care Team Description 02/20/2011 Office Visit [facility] Brain Benoit MD 1412 [facility] . [address]15 [place] [address] [place] [address] [phone] (Wo rk) Social History Tobacco Use Types Packs/Day Years Used Date Smoking Tobacco: Never Assessed Sex Assigned at Date Recorded Not on file documented as of this encounter Progress Notes Brain Benoit MD - 02/20/2011 12:01 AM CDT SUBJECTIVE: Here for 2 issues. 1. She reports paresthesias extending down to her right lower extremity. The paresthesias started in the gluteus and progressed on the back of her leg to her heel. He has sensation waxes and wanes. It does not appear to be activity dependent. She is having no lower extremity weakness. No bowel or bladder incontinence. She did have difficulty sleeping last night as a result of the sensation. She has not had problems of this nature in the past. No history of low back pain. 2. She had an insect bite on her left flank, this did seem to get infected, was red and painful over the last 3 days. She had an azithromycin five-day pack at home which she did not use from her previous respiratory illness, she started the antibiotic 2 days ago. She has noted reduction in the redness and discomfort. He did have fevers and chills initially, this has subsequently resolved. Maximum temperature 102.0 she doesn't think she has had any tick exposures, did not see any insects affixed to the skin at the site of the bite. No tobacco use or exposure Adverse Drug Reactions: Reviewed Medications: Reviewed. See Medication List in LastWord. OBJECTIVE: Vital Signs : Weight 145 pounds, BP 120/70, temperature 97.7, pulse 68 General: Awake, alert, no apparent distress. Does not appear to be accutely ill. She does appear comfortable while seated. She does become tearful during our visit, she reports she is not comfortable talking to others. Back: No palpable abnormalities in the lumbar spine. She does have tenderness to palpation over the right piriformis muscle, she reports this does elicit the paresthesias into her lower extremity as well. Lower extremity: The right leg shows no muscle fasciculation. She has normal muscle bulk and tone. Quadricep and hamstring strength is tested normal. She has normal abduction and adduction strength. Hip Flexion strength is normal. DTRs are 1+ bilaterally. In the left flank region there is a small slightly raised hyperemic lesion with a surrounding area of hyperemia. This does appear to be an initial localized reaction, subsequently unroofed secondary to mechanical irritation. The left inguinal lymph nodes are not reactive. There is no palpable fluctuance or induration in the area of hyperemia. Current area of surrounding hyperemia is approximately 6 cm in diameter. ASSESSMENT: 1. Right piriformis syndrome 2. Insect bite with secondary cellulitis, responding to azithromycin. PLAN: 1. Given handout for stretches, recommended cold compresses and anti-inflammatories for piriformis syndrome. If it is not responding to home therapy we could refer her to physical therapy. 2. Complete course of azithromycin. Continue to monitor the skin lesion. Reevaluate if it is enlarging again. If she is developing any systemic symptoms again I would check a Lyme titer and ehrlichiosis titer. The patient was discharged ambulatory and in stable condition. *SH~DNS~SOAP documented in this encounter Plan of Treatment Not on filedocumented as of this encounter Visit Diagnoses Not on filedocumented in this encounter Care Teams Adaptive Physical Education Specialist Relationship Specialty Start Date End Date Brain Benoit MD PCP - General 01/01/11 04/10/14 0840 [facility] [place] [address] documented as of this encounter
--- OUTSIDE RECORDS SUMMARY | 2022-05-08 13:49 | XMS_ITS | Encounter Summary ---
:1975 Author Organization [facility] Address [address] [place] [address] Care Team Providers Name Role Phone Brain Benoit MD Primary Care Provider Reason for Visit Reason Comments Fever Influenza (Flu) Encounter Details Date Type Department Care Team Description 09/17/2012 Hospital Encounter [facility] Macie Young F ever; Royer Broussard MD Influenza with other respiratory manifes tations [address] [place] [id number] [place] [address] Dr [place], [place] [phone] Social History Tobacco Use Types Packs/Day Years Used Date Smoking Tobacco: Never Assessed Sex Assigned at Date Recorded Not on file documented as of this encounter Last Filed Vital Signs Vital Sign Reading Time Taken Comments Blood Pressure 127/70 09/17/2012 4:38 PM EXECUTIVE CREATIVE DIRECTOR Pulse 124 09/17/2012 4:38 PM EXECUTIVE CREATIVE DIRECTOR Temperature 38.9 ??C (102 ??F) 09/17/2012 4:38 PM EXECUTIVE CREATIVE DIRECTOR Respiratory Rate 20 09/17/2012 4:38 PM EXECUTIVE CREATIVE DIRECTOR Oxygen Saturation 98% 09/17/2012 4:38 PM EXECUTIVE CREATIVE DIRECTOR Inhaled Oxygen Concentration - - Weight - - Height - - Body Mass Index - - documented in this encounter Medications at Time of Discharge Medication Sig Dispensed Refills Start Date End Date cholecalciferol (AKA Take 1,000 Units 0 2 VITAMIN D3) 1000 UNITS by mouth daily tablet (every 24 hours). ibuprofen (MOTRIN) 400 MG Take 400 mg by 0 2011 tablet mouth every 6 hours as needed. Multiple Vitamins-Minerals Take 1 tablet by 0 (MULTI FOR HER OR) mouth daily (every 24 hours). FEVERFEW OR Take 1 Dose by 0 2011 4 mouth daily (every 24 hours). fluticasone (AKA FLONASE) Place 2 sprays 16 g 1 201109/16/2013 50 MCG/ACT nasal solution into each nostril daily (every 24 hours). Dose is for each nostril. niacin 250 MG tablet Take 250 mg by 0 2011 04/11/2014 mouth nightly. Take with food. oseltamivir (aka TAMIFLU) Take 1 capsule by 10 capsule 0 04/11/2014 capsuleIndications: Fever mouth 2 times daily. DRUG NOT IN Take 1 Dose by 0 2011 6 COMPUTERIndications: mouth daily (every RUNNING, JARRET Fri 24 hours). 2010 1:27 PM Magnesium Oral - Unsure of Dosage ibuprofen (aka MOTRIN) Take 400 mg by 0 2 04/05/2016 tablet mouth every 6 hours as needed. documented as of this encounter ED Notes Macie Young MD - 09/17/2012 6:55 PM CST ED Provider Notes signed by Macie Young MD at 09/19/12 [id number] Author: Macie Young MD Service: (none) Author Type: Physician Filed: 09/19/12 4657 Note Time: 09/17/121854 Status: Signed Airport Ramp Agent: Macie Young MD (Physician) NAME: ARELIS MCKENNA MR#: [id number] CSN: [id number] AUTHENTICATING CLINICIAN: Macie Young MD CONFIRM #: [id number] LOC: 520 URGENT CARE PROGRESS NOTE DATE OF VISIT: 09/17/2012 : 1975 CHIEF COMPLAINT: Fever. HPI: Arelis is a 36-year-old lady coming with complaint of having been diagnosed with influenza type B aftershe was tested yesterday. At that point, had been 3 days on her symptoms and she was not judged a candidate for Tamiflu. Symptoms are getting worse with myalgias, arthralgias, fever, chills and a headache. She is not particularly short of breath, but is coughing. PAST MEDICAL HISTORY: Reviewed. ALLERGIES: Reviewed. MEDICATIONS: Reviewed. Her lab was test was consistent with the above. OBJECTIVE: VITAL SIGNS: Reviewed. Temperature of 102.1 with a pulse of 124 at rest. She appears somewhat sick looking. HEENT: Reveals nasal congestion. Large amount of clear discharge. The conjunctivae are injected. Throat is clear. TMs are clear. NECK: Supple. No cervical lymphadenopathy. LUNGS AND HEART: Normal. CBC and diff was ordered, interpreted by me as normal without evidence of secondary bacterial infection. ASSESSMENT: Influenza type B. PLAN/DISCUSSION: She was put on Tamiflu 75 twice a day for 5 days. Given Tylenol for fever. Expect improvement by tomorrow afternoon. If not call me back at the [facility]. AKD:MEDQ C: CONFIRM #: [id number] UTIVE CREATIVE DIRECTOR Macie Young MD - 09/17/2012 6:25 PM CST Subjective: Patient ID: Arelis Mckenna is an 36 y.o. female. Chief Complaint: HPI ROS Objective: BP 127/70 Pulse 124 Temp(Src) 38.9 ??C (102.1 ??F) (Oral) Resp 20 SpO2 98% LMP 09/11/2012 Physical Exam Procedures Assessment: Diagnoses of Fever and Influenza with other respiratory manifestations were pertinent to this visit. MDM Plan: Dictated in quick notes.Please review. documented in this encounter Miscellaneous Notes Medication History - Je Bonilla MD - 09/17/2012 6:25 PM CST INPATIENT MEDS Encounter Date: 09/17/12 oseltamivir (TAMIFLU) 75 mg capsule Start Date:09/17/12, End Date:04/11/14, Frequency:2 TIMES DAILY *No Administrations Recorded acetaminophen (TYLENOL) tablet 1,000 mg Start Date:09/17/12, End Date:09/17/12, Frequency:ONCE Taken Dose Action User Route Site Recorded Comment Reason 09/17/121814 1,000 mg Given Lara Gerber RN Oral - 09/17/121814 - - oseltamivir (TAMIFLU) 75 mg capsule Start Date:09/17/12, End Date:09/17/12, Frequency:2 TIMES DAILY *No Administrations Recorded ibuprofen (MOTRIN) 400 mg tablet Start Date:-, End Date:-, Frequency:EVERY 6 HOURS PRN *No Administrations Recorded UTIVE CREATIVE DIRECTOR Letter - 09/17/2012 12:00 AM CST [facility] [address] [place] [address] [place] [address] September 17, 2012 Patient: Arelis Mckenna Date of : 1975 Date of Visit: 09/17/2012 To Whom It May Concern: Arelis Mckenna was seen and treated in our department on 09/17/2012. She may return to work on 09/19/12. If you have any questions or concerns, please don't hesitate to call. Sincerely, Macie Young MD UTIVE CREATIVE DIRECTOR documented in this encounter Plan of Treatment Not on filedocumented as of this encounter Procedures Procedure Name Priority Date/Time Associated Comments Diagnosis COMPLETE BLOOD STAT 09/17/2012 5:24 PM Fever Results for this COUNT-W/DIFF EXECUTIVE CREATIVE DIRECTOR procedure are i n the results section. DIFFERENTIAL STAT 09/17/2012 5:24 PM Results f or this EXECUTIVE CREATIVE DIRECTOR procedure are i n the results section. documented in this encounter Results (ABNORMAL) Differential (09/17/2012 5:24 PM EXECUTIVE CREATIVE DIRECTOR) [facility] Method Time Signature Absolute 5.8 1.8 - 8.0 HP CONVERSION Neutrophils k/cmm Absolute 0.5 (L) 1.1 - 4.0 HP CONVERSION Lymphocytes k/cmm Absolute 0.4 0.2 - 0.8 HP CONVERSION Monocytes k/cmm Absolute 0.0 0.0 - 0.5 HP CONVERSION Eosinophils k/cmm Absolute 0.1 0.0 - 0.2 HP CONVERSION Basophils k/cmm Specimen Anatomical Collection Method Collection Time Receive d Time (Source) Location / / Volume Laterality 09/17/2012 5:24 PM 2 5:24 EXECUTIVE CREATIVE DIRECTOR PM EXECUTIVE CREATIVE DIRECTOR Narrative HP CONVERSION - 09/17/2012 5:47 PM EXECUTIVE CREATIVE DIRECTOR [place] [address] Macie Young MD LAB_1 Performing Organization Address [facility] Phon e Number HP CONVERSION Hemogram/Plts/Diff (09/17/2012 5:24 PM EXECUTIVE CREATIVE DIRECTOR) athologist Signature White Blood Cell 6.8 3.8 - 11.0 HP CONVERSIO N Count k/cmm Red Blood Cell 4.94 3.70 - HP CONVERSION Count 5.20 m/cmm Hemoglobin 14.2 11.8 - HP CONVERSION 15.5 g/dL Hematocrit 42.3 35.0 - HP CONVERSION 46.0 % Mean Corpuscular 85.8 80.0 - HP CONVERSION Volume 100.0 fL RDW 12.2 11.0 - HP CONVERSION 15.0 % Platelet Count 175 140 - 450 HP CONVERSION k/cmm Specimen Anatomical Collection Method Collection Time Receive d Time (Source) Location / / Volume Laterality 09/17/2012 5:24 PM 2 5:24 EXECUTIVE CREATIVE DIRECTOR PM EXECUTIVE CREATIVE DIRECTOR Narrative HP CONVERSION - 09/17/2012 5:47 PM EXECUTIVE CREATIVE DIRECTOR [place] [address] Macie Young MD LAB_1 Performing Organization Address [facility] Phon e Number HP CONVERSION documented in this encounter Visit Diagnoses Diagnosis Fever Fever, unspecified Influenza with other respiratory manifes tations Triage Assessment Note - Yi Mcpherson RN - 09/17/2012 4:37 PM CST Pt tested positive for influenza yesterday. Fever up to 104f after tyl and ibuprofen, also having stabbing RANDALL. documented in this encounter Care Teams Electrical Maintenance Engineer Relationship Specialty Start Date End Date Brain Benoit MD PCP - General 01/01/11 04/10/14 1415 [facility] [place] [address] documented as of this encounter
--- OUTSIDE RECORDS SUMMARY | 2022-05-08 13:50 | XMS_ITS | Encounter Summary ---
:1975 Author Organization [facility] Address [address] [place] [address] Care Team Providers Name Role Phone Unavailable Primary Care Provider Unavailable Reason for Visit Reason Comments Consult UMP CONSULT Encounter Details Date Type Department Care Team Description 04/15/2018 Office Visit [facility] Neurosurger y Gurjit Wheeler Intractable episodic [address] [facility] MD Topher tension-type headache 3rd Floor [address] [place] [address] (Primary Dx) [place], [place] [id number] [place], [place] [phone] [address] Social History Tobacco Use Types Packs/Day Years Used Date Never Smoker Smokeless Tobacco: Never Used Alcohol Use Standard Drinks/Week Comments Yes 0 (1 standard drink = 0.6 oz pure alcoho l) Sex Assigned at Date Recorded Not on file documented as of this encounter Last Filed Vital Signs Vital Sign Reading Time Taken Comments Blood Pressure 143/78 04/15/2018 7:45 AM CDT Pulse 77 04/15/2018 7:45 AM CDT Temperature - - Respiratory Rate - - Oxygen Saturation - - Inhaled Oxygen Concentration - - Weight - - Height 175.3 cm (5' 9) 04/15/2018 7:45 AM CDT Body Mass Index - - documented in this encounter Progress Notes Gurjit Wheeler MD - 04/15/2018 8:15 AM CDT Neurosurgery Consultation Arelis Mckenna Date of : 1975 Age: [age] year old Date of Service: 04/15/18 Provider Requesting Consultation: Luiz Sibley MD [facility] Neurology, Sleep Medicine [address] [place] [address] We had the pleasures of seeing Arelis Mckenna in the office at Dr. Sibley's request in consultation regarding her newly found Chiari malformation. History of Present Illness: This is a 42 year old right-handed female with a known history of right sided migraine (last episodewas a few years), neck and right leg pain for which she sees a chiropractor for adjustment from timeto time. She presents with a variety of complaints. The history started approximately 4 month ago when she developed constant sharp and burning bilateral voodoo headache accompanied by intermittent vertigo as well as mild tinnitus in both ears with the right ear worse than the left ear. The patient recalled that symptoms started a couple weeks after she was treated for presumably viral infection withTamiflu in October,. She did see a provider for her ear symptoms with no definitive cause identified. She reportedly had a normal audiogram. She was given cortisone eardrops, which helped reduce the tinnitus and vertigo. Approximately 5-6 weeks ago, she developed mid suboccipital ache without a precipitating factor. The pain is intermittent with no particular alleviating or exacerbating factors. About 3-4 weeks ago, she started to notice pain in the right medial upper arm radiating into the right forearm down to the fourth and fifth digits. She also has some nonspecific arm pain in the left upper arm. At some point in time, she developed occasional difficulty with swallowing for which she underwent a barium swallow study with normal result in February 2018. She also added that she has had some o ngoing hand weakness bilaterally. The patient was referred to Neurology for further evaluation and workup for her clinical syndrome. She had MRI of brain in 02/11/2018, which per radiologist's interpretation, showed Chiari I malformation. The patient was told by Neurology that the finding is incidental and there is no evidence of obstruction and her symptoms are relatively wide ranging and nonspecific concerning Chiari formation. She is referred to Neurosurgery for another opinion. The patient states that she has not been evaluated or treated for her headache and arms and leg painspecifically so far. On questioning, she denied headache induced by Valsalva maneuver or by neck extension; she further denies dysarthria, changes in vision, unsteadiness, spasticity in bilateral lower extremities, loss of temperature sensation, facial numbness/ hyperhidrosis, worsening dysphagia, andLhermitte's sign. Past Medical History: Anxiety, Hypermenorrhea, exercise induced bronchospasm, and depression Past Surgical History: S/p dilation and curettage of uterus followed by IUD placement for hypermenorrhea, appendectomy, andlipoma resection from right rib cage. Social History: Social History ??? Marital status: Spouse name: N/A ??? Number of children: 3 ??? 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 Smoking status: Former smoker. Used to smoke 1/. Quit in 1998 ??? Smokeless tobacco: Never Used ??? Alcohol use Yes ??? Drug use: No ??? Sexual activity: Not Currently Family History: Parents have HTN. Paternal grand father is ; he had HTN, CAD, and stroke. Paternal grand mother is alive and has stroke, CAD and HTN. Paternal uncle has DM. Allergies: Allergen Reactions ??? Eucalyptus Oil ??? Seasonal Allergies PN: -eucalyptus (Facial swelling) Medications: Current Outpatient Prescriptions: ??? doxycycline (PERIOSTAT) 50 MG TABS, Take 50 mg by mouth daily as needed, Disp: , Rfl: ??? levonorgestrel (MIRENA) 20 MCG/24HR IUD, 1 Device by Intrauterine route once, Disp: , Rfl: ??? Multiple Vitamin (MULTI-VITAMINS) TABS, Take by mouth daily, Disp: , Rfl: Review of Systems: Review of Systems Constitutional: Positive for chills, weight loss, weight gain, fatigue, decreased appetite, recent stressors, increased energy and confused. Negative for fever, night sweats, height loss, post-operative complications, incisional pain, hallucinations and hyperactivity. HENT: Positive for ear pain, tinnitus, trouble swallowing, tooth pain, taste disturbance, smell disturbance, sinus pain and neck mass. Negative for hearing loss, nosebleeds, hoarse voice, mouth sores, sore throat, ear discharge, gum tenderness, hearing aid, bleeding gums, dry mouth and sinus congestion. Eyes: Positive for pain, redness, eye pain, eye dryness and floaters. Negative for double vision, decreased vision, eye watering, eye bulging, flashing lights, spots, strabismus, tunnel vision, jaundice and eye irritation. Respiratory: Positive for shortness of breath and dyspnea on exertion. Negative for cough, hemoptysis, sputum production, wheezing, sleep disturbances due to breathing, snores loudly, cough disturbing sleep and postural dyspnea. Cardiovascular: Positive for chest pain, dyspnea on exertion, light-headedness and exercise intolerance. Negative for palpitations, orthopnea, fingers/toes turn blue, hypertension, hypotension, syncope, history of heart murmur, pacemaker, few scattered varicosities, leg pain, sleep disturbances due to breathing and edema. Gastrointestinal: Positive for heartburn, nausea, abdominal pain and bloating. Negative for vomiting, diarrhea, constipation, blood in stool, melena, rectal pain, bowel incontinence, jaundice, coffee ground emesis and change in stool. Genitourinary: Positive for dyspareunia, decreased libido and arousal difficulty. Negative for vaginal discharge, genital sores, abnormal vaginal bleeding, excessive menstruation, menstrual changes, hot flashes, vaginal dryness and postmenopausal bleeding. Musculoskeletal: Positive for myalgias, back pain, arthralgias, stiffness, muscle cramps, neck pain and muscle weakness. Negative for joint swelling, bone pain and fracture. Neurological: Positive for dizziness, tingling, tremors, weakness, light- headedness, headaches, disturbances in coordination, memory loss and difficulty walking. Negative for speech change, seizures, loss of consciousness, numbness and paralysis. Psychiatric/Behavioral: Positive for memory loss, decreased concentration and mood swings. Negative for depression, hallucinations and panic attacks. All other systems reviewed and are negative. Physical Exam: BP 143/78 Pulse 77 Ht 1.753 m (5' 9) Patient Supplied Answers To the UC Pain Questionnaire UC Pain - Patient Entered Questionnaire/Answers 04/15/2018 What number best describes your pain right now: 0 = No pain to 10 = Worst pain imaginable 4 How would you describe the pain? burning, pressure Which of the following worsen your pain? lying down, nothing worsens the pain Which of the following improve or reduce your pain? thinking about something else, nothing relieves the pain What number best describes your average pain for the past week: 0 = No pain to 10 = Worst pain imaginable 6 What number best describes your LOWEST pain in past 24 hours: 0 = No pain to 10 = Worst pain imaginable 3 What number best describes your WORST pain in past 24 hours: 0 = No pain to 10 = Worst pain imaginable 7 When is your pain worst? 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 skin care technician Have you tried treating your pain with medication? Yes Are you currently taking medications for your pain? No General: Well-nourished and well-developed in no acute distress. HEENT: Head is normocephalic and atraumatic. Neck is supple without adenopathy or thyromegaly. Palpation of her bilateral temporomandibular joint shows no popping, clicking, tenderness and/or swelling.Conjunctivae are anicteric. Oropharynx and nasopharynx are without exudate and/or erythema. Inspection of her oral cavity shows no obvious ulcerations and/or lesions. Lungs: Clear to auscultation. Cardiovascular: Heart rate is regular with S1, S2 and no extra sounds. Peripheral pulses are +2 throughout. Abdomen: + bowel sound x 4 quadrants. Soft. None tender. None distended. Focused Neurologic Exam: She is alert, oriented and cooperative. She answers questions and follows commands appropriately in fluent speech and normal tone. Memory and fund of knowledge are normal. Bilateral pupils are round, equal and reactive to light and accommodation. Extraocular movements are intact with no nystagmus and/or disconjugation. Visual chambers to direct confrontation are full. Facial sensation and expression are symmetric. Hearing is to baseline bilaterally. Gag reflex is present. Tongue and uvula are midline with normal palate movements and no fasciculation. Trapezius and sternocleidal strength is equivocal.She has no paxpve-qi-fscl dysmetria. Ojeqiu-uind-hbxegt, tckd-og-wgas rub and rapid alternating finger and hand taps are normal. Strength in all 4 extremities is 5/5. Deep tendon reflexes are symmetric. Sensation to light touch is intact in 4 extremities. Negative Dougherty's. Negative Lhermitte's. Romberg test is negative. Tandemwalk is normal, as are her station and gait. Imaging: We showed her the MRI and reviewed the findings in detail with the patient today. We told her while the cerebellar tonsillar herniation greater than 5 mm below the foramen magnum is commonly considered diagnostic of Chiari malformation Type 1, a small proportion of the population may have such tonsillary position naturally. In these people the diagnosis depends on symptoms suggestive of brainstem compression. We pointed it out That, in her case, there is no evidence of imaging evidence of compression or edema of the brainstem at the foramen magnum (best appreciated on axial T2 WIMRI through the foramen magnum), no evidence of complete obliteration of CSF signal, and no hydrocephalus. On sagittal imaging, the tonsils are rounded rather than pointed or peg-like. The axial imagesthrough the foramen show no crowding of the medulla by the tonsils. No syrinx is seen in the upper cervical spinal cord. Assessment and Plan of Care: This is a 42 year old with approximately 4 months history of bilateral voodoo headache and suboccipital neck pain as well as a cluster of non specific generalized symptoms. Her MRI of brain incidentally disclosed a mild degree of tonsil decent below foramen magnum that raised the concern of Chiari malf ormation and if this might be contributing to her clinical syndrome. The patient did not exhibit foramen magnum compression syndrome, central cord syndrome, or cerebellar syndrome on examination today. In addition, her symptoms are not specific or characteristic of Chiari malformation. We reassured Mrs. Mckenna that tonsillar herniation identified radiographically is of limited diagnostic value to diagnosis Chiari malformation, and requires clinical correlation which is not reflected onher presenting symptoms and exam. That is, there is no indication for neurosurgical intervention. Werecommend that she return to her neurologist for advice and recommendation of her ongoing problems. Thank you very much for allowing us to participate in the care of this patient. Please do not hesitate to contact us with questions. We will keep you informed of her progress. > 50% of the 60 minute visit today I spent in counseling, education, and coordination of care forthe problem outline above. The patient was seen in conjunction with attending Dr. Wheeler. Dr. Wheeler reviewed the history and image, examined the patient, and jointly developed the plan of care. Gurjit Wheeler MD, Professor Amalia Suarez, DNP, EDUCATION OFFICER, LINE ERECTOR-[facility] Department of Neurosurgery I have personally reviewed the history and images, examined the patient and discussed the findings with Ms. Suarez and the patient, reviewed and edited Ms. Suarez's note and agree with the plan of care. - [facility] documented in this encounter Nursing Notes Yesica Bojorquez MA - 04/15/2018 8:15 AM CDT Chief Complaint Patient presents with ??? Consult UMP CONSULT Yesica Bojorquez MA documented in this encounter Plan of Treatment Not on filedocumented as of this encounter Visit Diagnoses Diagnosis Intractable episodic tension-type headac he - Primary Episodic tension type headache documented in this encounter
--- OUTSIDE RECORDS SUMMARY | 2022-05-08 13:50 | XMS_ITS | Encounter Summary ---
:1975 Author Organization [facility] Address [address] [place], [place] [address] [place] [address] Care Team Providers Name Role Phone Brain Benoit MD Primary Care Provider Encounter Details Date Type Department Care Team Description 04/13/2010 PN Conversion Only [place] CONVERSION Rubi Gould [facility] [facility] [place] [address] [address] [facility] [address] [place], [place] [address] (Wo rk) Social History Tobacco Use Types Packs/Day Years Used Date Smoking Tobacco: Never Assessed Sex Assigned at Date Recorded Not on file documented as of this encounter Plan of Treatment Not on filedocumented as of this encounter Procedures Procedure Name Priority Date/Time Associated Comments Diagnosis ANATOMICAL PATH Routine 04/13/2010 11:12 Results for this LIQUID BASED AM CDT procedure are i n the results section. SEXUALLY TRANSMITTED Routine 04/13/2010 11:12 Res ults for this DISEASE PROBE AM CDT procedure are in the results section. TEST Routine 04/13/2010 10:21 Results f or this (URINE) AM CDT procedure are i n the results section. documented in this encounter Results Sexually Transmitted Disease Probe (04/13/2010 11:12 AM CDT) [facility] Method Time Signature Sexually SEE TEXT HP CONVERSION Transmitted Disease Probe Comment: STDPR Sexually Transmitted Disease DNA Probe ? ORDERED BY: RUBI GOULD SOURCE: Endocervical for molecular testi ng COLLECTED: ??04/13/10 11:12 ? PLATED: ? 04/13/10 11:26 Chlamydia trachomatis DNA Probe ?FINAL ? 04/16/10 10:57 Chlamydia trachomatis NEGATIVE by DNA a mplification The amplified DNA assay is cleared by [facility] for non-medicolegal diagnostic testing in [facility] adult population. Neisseria gonorrhea DNA Probe ?FINAL ? 04/16/10 10:57 Neisseria gonorrhea NEGATIVE by DNA amp lification. The amplified DNA assay is cleared by [facility] for non-medicolegal diagnostic testing in [facility] adult population. Specimen (Source) Anatomical Collection Method Collection Time Re ceived Time Location / / Volume Laterality 04/13/2010 11:12 AM CDT Rubi Gould MD LAB_1 Performing Organization Address City/State/ZIP Code Phon e Number HP CONVERSION Pap Smear (04/13/2010 11:12 AM CDT) athologist Signature Pap Smear SEE TEXT No normal HP CONVERSION range Comment: Final GYNECOLOGICAL CYTOLOGY REPORT Pathology #: [id number] ?Date Obta ined: 04/13/2010 ? Date Received: 04/16/2010 INTERPRETATION/RESULTS: Negative for Intraepithelial Lesion or M alignancy SPECIMEN ADEQUACY: Satisfactory for Evaluation. ??Endocervi esau cells/transformation zone component present. Verified on 04/19/2010 ??by AMMON HSU(ASCP) (electronic signature) CLINICAL NOTES: ?LMP: not stated, Irregular fady ods. SPECIMEN TYPE: ? CERVICAL WITH REFLEX TO HPV IF CUS ?* End of Report Specimen (Source) Anatomical Collection Method Collection Time Re ceived Time Location / / Volume Laterality 04/13/2010 11:12 AM CDT Rubi Gould MD LAB_1 Performing Organization Address City/State/ZIP Code Phon e Number HP CONVERSION Test (Urine) (04/13/2010 10:21 AM CDT) [facility] gist Method Time Signature Urine Negative No normal HP CONVERSION Test range Specimen (Source) Anatomical Collection Method Collection Time Re ceived Time Location / / Volume Laterality 04/13/2010 10:21 AM CDT Rubi Gould MD LAB_1 Performing Organization Address City/[facility] Phon e Number HP CONVERSION documented in this encounter Visit Diagnoses Not on filedocumented in this encounter Care Teams Injury/Safety Hazard Assessment Relationship Specialty Start Date End Date Brain Benoit MD PCP - General 01/01/11 04/10/[address] [facility] [place] [id number] documented as of this encounter
--- OUTSIDE RECORDS SUMMARY | 2022-05-08 13:50 | XMS_ITS | Encounter Summary ---
:1975 Author Organization [facility] Address [address] [place] [address] Care Team Providers Name Role Phone Brain Benoit MD Primary Care Provider Encounter Details Date Type Department Care Team Description 11/21/2009 Office Visit [facility] Brain Benoit MD [address]15 [facility] . [address] [place] [address] [place] [address] [phone] (Wo rk) Social History Tobacco Use Types Packs/Day Years Used Date Smoking Tobacco: Never Assessed Sex Assigned at Date Recorded Not on file documented as of this encounter Last Filed Vital Signs Vital Sign Reading Time Taken Comments Blood Pressure 118/60 11/21/2009 4:02 PM INDUSTRIAL RENDERER Pulse 70 11/21/2009 4:02 PM INDUSTRIAL RENDERER Temperature 36.6 ??C (97.9 ??F) 11/21/2009 4:02 PM C: 36.6 C INDUSTRIAL RENDERER Respiratory Rate - - Oxygen Saturation - - Inhaled Oxygen Concentration - - Weight 66.7 kg (146 lb 15.7 oz) 11/21/2009 4:02 PM C: 6 6.7kg INDUSTRIAL RENDERER Height 175.3 cm (5' 9) 11/21/2009 4:02 PM C: 175.3cm INDUSTRIAL RENDERER Body Mass Index 21.71 11/21/2009 4:02 PM INDUSTRIAL RENDERER documented in this encounter Progress Notes Brain Benoit MD - 11/21/2009 12:01 AM CST Progress Notes signed by Brain Benoit MD at 11/21/09 1707 Author: Brain Benoit MD Service: (none) Author Type: Physician Filed: 01/19/112024 Note Time: 11/21/09 0001 Status: Signed Security Site Supervisor: Brain Benoit MD (Physician) Acute Clinic Visit IMPRESSION: Pharyngitis SUBJECTIVE: History of Present Illness: Symptom(s): Fever. Fatigue. No headache. No eye pain. No ear pain. No nasal congestion/rhinorrhea. No cough. Has felt some throat fullness for the last week, particularly notable at night. She feels as though she is going to choke. Fever: Duration: 1 week. Max. temp. < 100.5 degrees F. Additional Details: Only notes elevated temp at night.. Fatigue: Duration: 1 week. Severity: Mild. 2) Also requesting change in medication from citalopram to fluoxetine for depression/anxiety. Tired citalopram for a month, did not like the response to the medication. Has not been on anything since then, does have persistance of the symptoms. Meds This Illness: No acute medications being used Past History: No History of Respiratory Disease Tobacco: None. Adverse Drug Reactions: None. Chronic Medications: Reviewed and updated today on Health Profile in [employer]. OBJECTIVE: Vital Signs: Vital Signs taken today were reviewed on the flowsheet in [employer]. General Appearance: Well-appearing Eyes: External exam is normal bilaterally Ears: Bilateral pinnae, canals and TMs normal Nose/Sinuses: Normal Oropharynx: rigth tonsil slightly larger than the left, single plaque is present as well. Neck: Supple without significant adenopathy or thyromegaly Respiratory: Lung sounds clear to auscultation without respiratory distress Skin: Skin exam normal Lab & X-Ray: Rapid strep test is negative. ASSESSMENT: Pharyngitis Depression/anxiety PLAN: Throat Culture pending Symptomatic care Nutritious liquids RTC PRN if not gradually improving Will start back on flouxetine 10mg a day for the first week, then increase to 20mg daily. Given 1 year of refills, return in 1 year, earlier if needing additional changes. *SH~PC~URIL ~[facility] Note completed on: 11/21/2009 5:06 PM STRIAL RENDERER documented in this encounter Plan of Treatment Not on filedocumented as of this encounter Visit Diagnoses Not on filedocumented in this encounter Care Teams Stallion Manager Relationship Specialty Start Date End Date Brain Benoit MD PCP - General 01/01/11 04/10/[address] [facility] [place] [address] documented as of this encounter
--- OUTSIDE RECORDS SUMMARY | 2022-05-08 13:50 | XMS_ITS | Encounter Summary ---
:1975 Author [email or web address] Address [address] [place] [address] Care Team Providers Name Role Phone Brain Benoit MD Primary Care Provider Encounter Details Date Type Department Care Team Description 07/01/2008 Office Visit [facility] [place] [address] [place] [address] [place] [address] Social History Tobacco Use Types Packs/Day Years Used Date Smoking Tobacco: Never Assessed Sex Assigned at Date Recorded Not on file documented as of this encounter Last Filed Vital Signs Vital Sign Reading Time Taken Comments Blood Pressure 130/73 07/01/2008 9:16 AM CDT Pulse 71 07/01/2008 9:16 AM CDT Temperature 36.7 ??C (98.1 ??F) 07/01/2008 9:16 AM ORAL C: 3 6.7 C CDT Respiratory Rate 16 07/01/2008 9:16 AM CDT Oxygen Saturation - - Inhaled Oxygen Concentration - - Weight - - Height - - Body Mass Index - - documented in this encounter Progress Notes Bronwyn Nguyen MD - 07/01/2008 12:01 AM CDT Progress Notes signed by Bronwyn Nguyen MD at 07/19/08 1033 Author: Bronwyn Nguyen MD Service: (none) Author Type: Physician Filed: 01/19/11 0744 Note Time: 07/01/08 0001 Status: Signed Channel Machine Operator: Bronwyn Nguyen MD (Physician) NAME: ARELIS MCKENNA MR#: [id number] ACCT: [id number] VISIT: [id number] DICTATING CLINICIAN: BRONWYN NGUYEN MD CONFIRM #: [id number] LOC: 520 CLINIC PROGRESS NOTE DATE OF VISIT: 07/01/2008 SUBJECTIVE: This 32-year-old woman had two moles removed at [facility] two days ago. She had a syncopal episode while there. Since then, she has had nausea, sweating, temperature to slightly above 100 degrees with decreased appetite, fatigue, body aches. She has had nausea, but no vomiting. Bowel movements have been normal. No urinary symptoms, no cold symptoms. She is just at the end of her menstrual periods. She uses condoms with intercourse. MEDICATIONS: Reviewed in LastWord. ALLERGIES: NONE. OBJECTIVE: VS: BP: 130/72. T: 98. P: 71. R: 16. GENERAL APPEARANCE: The patient appears slightly ill. SKIN: Examination of her skin lesions reveals shaved biopsies with no sign of infection, 1 on her left forearm and 1 on the left thigh. BACK: No CVA tenderness. Ears, TMs are normal bilaterally. Throat, purulent postnasal drip is present. NECK: No nodes. LUNGS: Clear. ABDOMEN: Bowel sounds are normal. There is diffuse abdominal tenderness with slight guarding. Urinalysis today is normal and Urine HCG negative. ASSESSMENT: Upper respiratory infection, viral gastroenteritis. PLAN: Zofran 4 mg #10 with 1 refill is given for nausea. She will push fluids and is cautioned about contagiousness. She is to be rechecked if the moles become reddened or painful. CAM:[id number] C: 07/01/08 15:20 CONFIRM #: [id number] documented in this encounter Plan of Treatment Not on filedocumented as of this encounter Visit Diagnoses Not on filedocumented in this encounter Care Teams Auto Machinist Relationship Specialty Start Date End Date Brain Benoit MD PCP - General 01/01/11 04/10/14 [address] [facility] [place] [address] documented as of this encounter
--- OUTSIDE RECORDS SUMMARY | 2022-05-08 13:50 | XMS_ITS | Encounter Summary ---
:1975 Author Organization [facility] Address [address] [place] [address] Care Team Providers Name Role Phone Brain Benoit MD Primary Care Provider Encounter Details Date Type Department Care Team Description 02/25/2009 PN Conversion Only [facility] CONVERSION Brain Benoit, [address] [facility] [place] [address] 14[address] [facility] [place] [address] (Wo rk) Social History Tobacco Use Types Packs/Day Years Used Date Smoking Tobacco: Never Assessed Sex Assigned at Date Recorded Not on file documented as of this encounter Plan of Treatment Not on filedocumented as of this encounter Procedures Procedure Name Priority Date/Time Associated Comments Diagnosis ANATOMICAL PATH Routine 02/25/2009 11:25 AM Resul ts for this LIQUID BASED CDT procedure are i n the results section. GLUCOSE Routine 02/25/2009 8:56 AM Results f or this CDT procedure are i n the results section. LIPID PANEL AND Routine 02/25/2009 8:56 AM Result s for this DIRECT LDL(IF CDT procedure are in NEEDED) the results section. documented in this encounter Results Pap Smear (02/25/2009 11:25 AM CDT) [facility] gist Method Time Signature PAP Smear SEE TEXT No normal HP CONVERSION Liquid Based range Comment: Patient: ARELIS FAIRCHILD ? CERVICAL CYTOLOGY REPORT Pathology # ??[id number] ?Date Obtained: ? Date Received: CYTOLOGIC IMPRESSION: Negative for intraepithelial lesion or m alignancy. Verified 03/01/09 by: ??JLD ?(electronic signature) ? ISAAC TIONAL DATA LMP: CLINICAL HIST LIQUID BASED PAP CERVICAL SPECIMEN ADEQUACY: ?? Satisfactory. ENDOCERVICAL CELLS: ??Present. Specimen (Source) Anatomical Collection Method Collection Time Re ceived Time Location / / Volume Laterality 02/25/2009 11:25 AM CDT Brain Benoit MD LAB_1 Performing Organization Address City/State/ZIP Code Phon e Number HP CONVERSION Glucose (02/25/2009 8:56 AM CDT) P athologist Signature Length Of Fast 12.0 Hours HP CONVERSION Lab Glucose 80 60 - 100 HP CONVERSION mg/dL Specimen (Source) Anatomical Collection Method Collection Time Re ceived Time Location / / Volume Laterality 02/25/2009 8:56 AM CDT Brain Benoit MD LAB_1 Performing Organization Address City/State/ZIP Code Phon e Number HP CONVERSION Lipid Panel and Direct LDL(If Needed) (02/25/2009 8:56 AM CDT) Patholo gist Method Time Signature Length Of Fast 12.0 Hours HP CONVERSION Cholesterol/HDL 2.8 No normal HP CONVERSION Ratio Screen range Cholesterol 169 <200 mg/dL HP CONVERSION HDL Cholesterol 60 >40 mg/dL HP CONVERSION Triglycerides 59 0 - 149 HP CONVERSION mg/dL LDL Calculated 97 0 - 130 HP CONVERSION mg/dL Comment: Specimen (Source) Anatomical Collection Method Collection Time Re ceived Time Location / / Volume Laterality 02/25/2009 8:56 AM CDT Brain Benoit MD LAB_1 Performing Organization Address City/State/ZIP Code Phon e Number HP CONVERSION documented in this encounter Visit Diagnoses Not on filedocumented in this encounter Care Teams Zigzag Elastic Attacher Relationship Specialty Start Date End Date Brain Benoit MD PCP - General 01/01/11 04/10/[address] [place] [address] documented as of this encounter
--- OUTSIDE RECORDS SUMMARY | 2022-05-08 13:50 | XMS_ITS | Encounter Summary ---
:1975 [address] [facility] Address [address] [place] [address] Care Team Providers Name Role Phone Brendon Arroyo MD Primary Care Provider Encounter Details Date Type Department Care Team Description 02/11/2009 [facility] [address] [facility] 1415 [place] [address] [place], [place] [id number] (Wo rk) Social History Tobacco Use Types Packs/Day Years Used Date Smoking Tobacco: Never Assessed Sex Assigned at Date Recorded Not on file documented as of this encounter Last Filed Vital Signs Vital Sign Reading Time Taken Comments Blood Pressure 100/62 02/11/2009 9:51 AM CDT Pulse 88 02/11/2009 9:51 AM CDT Temperature 36.7 ??C (98.1 ??F) 02/11/2009 9:51 AM ORAL C: 3 6.7 C CDT Respiratory Rate - - Oxygen Saturation - - Inhaled Oxygen Concentration - - Weight 70.3 kg (154 lb 15.7 02/11/2009 9:51 AM C: 70.3k g oz) CDT Height - - Body Mass Index - - documented in this encounter Progress Notes Brendon Arroyo MD - 02/11/2009 12:01 AM CDT Progress Notes signed by Brendon Arroyo MD at 02/28/09 3141 Author: Brendon Arroyo MD Service: (none) Author Type: Physician Filed: 01/19/11 1330 Note Time: 02/11/09 0001 Status: Signed Cuprous Chloride Helper: Brendon Arroyo MD (Physician) NAME: ARELIS MCKENNA MR#: [id number] ACCT: [id number] VISIT: [id number] DICTATING CLINICIAN: BRENDON ARROYO MD CONFIRM #: [id number] LOC: 76923 CLINIC PROGRESS NOTE DATE OF VISIT: 02/11/2009 SUBJECTIVE: : 1229/1974. Here for a bump in the right midaxillary line. Present for the last 5 years, noted after her last . Is wondering if it is possibly enlarging slightly. Does have some associated discomfort. Feels as though she has pain that radiates up into the right axilla, particularly with raising her arm above her head. No injury to the area and does have some discomfort as her bra strap goes right across the lesion as well. She is otherwise in her usual state of health. No fevers, chills, or sweats. Weight is stable. FAMILY HISTORY: Negative for breast cancer. She does do self-breast exams and has found no localized lesions. She is very nervous about presenting to the clinic today. No tobacco history exposure. ADR/ALLERGIES: NO KNOWN DRUG ALLERGIES. MEDICATIONS: Reviewed and updated in LastWord. OBJECTIVE: VS: BP: 100/62. T: 98.1. P: 88. Wt: 155 lb. She is awake, alert, in apparent distress, but does get tearful during her visit. Right midaxillary line there is a 2.5 cm subdermal, very mobile, well-defined lesion. There is no overlying erythema present. There is no axillary adenopathy noted. Breast exam shows normal breast tissue, very easy to examine. Normal fibrous tissue. ASSESSMENT: Right midaxillary lipoma, enlarging and uncomfortable, likely causing associated discomfort, with normal breast exam. PLAN: Due to the level anxiety, recommended consultation with Surgery for excision of this lesion. I did give her a prescription for Ativan to be taken one-half hour before her appointment and advised she will need to be driven to and from the appointment. But reassurance given on benign nature. Continue to follow nostalgia. Will need mammogram if pain persists. DWH:[id number] C: 02/11/09 14:45 CONFIRM #: [id number] documented in this encounter Plan of Treatment Not on filedocumented as of this encounter Visit Diagnoses Not on filedocumented in this encounter Care Teams Sugarcane Planter Relationship Specialty Start Date End Date Brendon Arroyo MD PCP - General 01/01/11 04/10/14 [address]15 [place] [address] documented as of this encounter
--- OUTSIDE RECORDS SUMMARY | 2022-05-08 13:50 | XMS_ITS | Encounter Summary ---
:1975 Author Organization [facility] Address [address] [place] [address] Care Team Providers Name Role Phone Brain Benoit MD Primary Care Provider Reason for Visit Reason Comments Other Encounter Details Date Type Department Care Team Description 02/16/2009 [facility]phone [facility] Other [address] [facility] . [place], [place] [address] Social History Tobacco Use Types Packs/Day Years Used Date Smoking Tobacco: Never Assessed Sex Assigned at Date Recorded Not on file documented as of this encounter Progress Notes Lara Ferris - 02/16/2009 8:39 AM CDT Phone Note filed by Lara Ferris at 01/18/117 Author: Lara Ferris Service: (none) Author Type: (none) Filed: 01/18/11207 Note Time: 02/16/09 0839 Status: Signed Income Tax Consultant: Joe Conversion (Physician) Medication Issue/Refill Caller Name/Relationship:pt Primary Contract Clerk:radha Patient has contacted Pharmacy (yes/no): Comments:lost written rx, and is requesting a new one sent to [facility] today [place]...pt is taking med for anxiety due to surgery at 9:30am this morning Pharmacy Name & Phone # PN [facility] Pharmacy Street or City: Drug Name:Ativan Strength: Dose/Route/Freq: Head Of Sales:mayelin Nathan call back number:[phone] Is it OK to leave a confidential message on this voicemail? yes Created on 16Feb2009 8:39am by LARA FERRIS On 16Feb2009 8:53am MELYSSA GOULD wrote: Patient has gone to the pharmacy and left, Rx did not arrive. Patient is on the phone at this time. On 16Feb2009 8:59am DALIA SALCEDO wrote: Written rx for Ativan 1 mg ,no refill,taken to [facility] Patient notified Patient to pickle solution maker E MIXING OPERATOR documented in this encounter Plan of Treatment Not on filedocumented as of this encounter Visit Diagnoses Not on filedocumented in this encounter Care Teams Breeder Service Technician Relationship Specialty Start Date End Date Brain Benoit MD PCP - General 01/01/11 04/10/14 [address] [place] [id number] documented as of this encounter
--- OUTSIDE RECORDS SUMMARY | 2022-05-08 13:50 | XMS_ITS | Encounter Summary ---
:1975 [facility] Address [address] [place] [address] Care Team Providers Name Role Phone Brain Benoit MD Primary Care Provider Encounter Details Date Type Department Care Team Description 02/16/2009 PN Conversion Only [place] CONVERSION Brain Vera MD 1415 [facility] 14[address] [facility] [place] [address] [place] [address] (Wo rk) Social History Tobacco Use Types Packs/Day Years Used Date Smoking Tobacco: Never Assessed Sex Assigned at Date Recorded Not on file documented as of this encounter Plan of Treatment Not on filedocumented as of this encounter Procedures Procedure Name Priority Date/Time Associated Diagnosis Comme nts SURGICAL AWILDA PARK Routine 02/16/2009 10:33 AM Shanda capellan [facility] CD[facility] procedure are i n the results section. documented in this encounter Results Pathology Report (02/16/2009 10:33 AM CDT) [facility] gist Method Time Signature Surgical SEE TEXT No normal HP CONVERSION Pathology range Comment: Patient: ARELIS MCKENNA ?S URGICAL PATHOLOGY REPORT Pathology # ??[id number] ?Date Obtained: ? Date Received: DIAGNOSIS: ?Right side chest wall mass: ?- Lipoma. ?Serge King M.D. ?(electronic signature) TRH/TRH/kjs Date of Report: 02/21/09 Pathology # ??[id number] ?Date Obtained: ? Date Received: ORGAN/TISSUE SITE: ?Right chest wall mass GROSS DESCRIPTION: ?Received in formalin is a 2.8 x 2. 6 x 1.2 cm irregular fatty mendez-yellow ?tissue. ??The cut surface is glist ening fatty yellow. Lamps Tester And Inspector ?sections are submitted in [id number] [facility] settes 1-2. MJL/amf MICROSCOPIC DESCRIPTION: ?Sections show lobular mature adipo se tissue. There is no evidence of ?atypia or malignancy. Specimen (Source) Anatomical Collection Method Collection Time Re ceived Time Location / / Volume Laterality 02/16/2009 10:33 AM CDT Brain Vera MD LAB_1 Performing Organization Address City/State/ZIP Code Phon e Number HP CONVERSION documented in this encounter Visit Diagnoses Not on filedocumented in this encounter Care Teams Associate Professor Of Archaeology Relationship Specialty Start Date End Date Brain Benoit MD PCP - General 4/5/11 7/13/14 [address] [facility] [place] [address] documented as of this encounter
--- OUTSIDE RECORDS SUMMARY | 2022-05-08 13:50 | XMS_ITS | Encounter Summary ---
:1975 Author [facility] Address [address] [place] [address] Care Team Providers Name Role Phone Brain Benoit MD Primary Care Provider Encounter Details Date Type Department Care Team Description 09/12/2009 Nursing Visit [facility] [address] [place] [address] Topher Cosme MD [address] [facility]. [place], [place] [id number] Social History Tobacco Use Types Packs/Day Years Used Date Smoking Tobacco: Never Assessed Sex Assigned at Date Recorded Not on file documented as of this encounter Plan of Treatment Not on filedocumented as of this encounter Visit Diagnoses Not on filedocumented in this encounter Care Teams Post Anesthesia Nurse Relationship Specialty Start Date End Date Brain Benoit MD PCP - General 01/01/11 04/10/14 1415 [facility] [place] [address] documented as of this encounter
--- OUTSIDE RECORDS SUMMARY | 2022-05-08 13:50 | XMS_ITS | Encounter Summary ---
:1975 Author Organization [facility] Address [address] [place] [address] Care Team Providers Name Role Phone Brain Benoit MD Primary Care Provider Encounter Details Date Type Department Care Team Description 07/01/2008 PN Conversion Only [place] [address] [address] [place] [address] Social History Tobacco Use Types Packs/Day Years Used Date Smoking Tobacco: Never Assessed Sex Assigned at Date Recorded Not on file documented as of this encounter Plan of Treatment Not on filedocumented as of this encounter Visit Diagnoses Not on filedocumented in this encounter Care Teams Director Business Development Relationship Specialty Start Date End Date Brain Benoit MD PCP - General 01/01/11 04/10/14 1415 [place] [address] documented as of this encounter
--- OUTSIDE RECORDS SUMMARY | 2022-05-08 13:50 | XMS_ITS | Encounter Summary ---
:1975 Author Organization [facility] Address [address] [place] [address] Care Team Providers Name Role Phone Brain Benoit MD Primary Care Provider Encounter Details Date Type Department Care Team Description 07/01/2008 PN Conversion Only [place] [address] [facility] [address] [place] [address] [place] [address] Social History Tobacco Use Types Packs/Day Years Used Date Smoking Tobacco: Never Assessed Sex Assigned at Date Recorded Not on file documented as of this encounter Plan of Treatment Not on filedocumented as of this encounter Procedures Procedure Name Priority Date/Time Associated Comments Diagnosis URINALYSIS Routine 07/01/2008 9:40 AM Results f or this ROUTINE(MICRO IF POS) CDT proced ure are in the results section. URINALYSIS Routine 07/01/2008 9:40 AM Results f or this MICROSCOPIC CDT procedure are i n the results section. TEST Routine 07/01/2008 9:40 AM Results for this (URINE) CDT procedure are i n the results section. documented in this encounter Results (ABNORMAL) Urinalysis Routine(Micro If Pos) (07/01/2008 9:40 AM CDT) [facility] Method Time Signature Turbidity Clear No normal HP CONVERSION range pH Urine 7.0 4.5 - 7.5 HP CONVERSION Protein Urine Negative Neg-Trac HP CONVERSION Glucose, Negative Neg-Trac HP CONVERSION Qualitative U Ketones Negative Negative HP CONVERSION U BILI Negative Negative HP CONVERSION Blood Urine Trace (A) Negative HP CONVERSION Nitrite Urine Negative Negative HP CONVERSION Leukocyte Negative Negative HP CONVERSION Esterase Urine Urobilinogen Negative 0.2 - 1.0 HP CONVERSION Urine U Specific <=1.005 1.005 - 25 HP CONVERSION [place] Specimen (Source) Anatomical Collection Method Collection Time Re ceived Time Location / / Volume Laterality 07/01/2008 9:40 AM CDT Bronwyn Bingham MD LAB_1 Performing Organization Address [facility] Phon e Number HP CONVERSION Urinalysis Microscopic (07/01/2008 9:40 AM CDT) Analysis Performed At Patho logist Time Signature White Blood 0-2/HPF 0 - 3 HP CONVERSION Cells Urine Red Blood Cells 0-2/HPF 0 - 2 HP CONVERSION Urine Epithelial Few Few /HPF HP CONVERSION Cells Specimen (Source) Anatomical Collection Method Collection Time Re ceived Time Location / / Volume Laterality 07/01/2008 9:40 AM CDT Bronwyn Bingham MD LAB_1 Performing Organization Address [facility] Phon e Number HP CONVERSION Test (Urine) (07/01/2008 9:40 AM CDT) [facility] gist Method Time Signature Urine Negative No normal HP CONVERSION Test range Comment: The sensitivity of this assay is 25 mIU/ mL. This test can detect as early as 10-12 days after conception. It may be positive before a first missed menses. A negative result does no t rule out an early . Specimen (Source) Anatomical Collection Method Collection Time Re ceived Time Location / / Volume Laterality 07/01/2008 9:40 AM CDT Bronwyn Bingham MD LAB_1 Performing Organization Address [facility] Phon e Number HP CONVERSION documented in this encounter Visit Diagnoses Not on filedocumented in this encounter Care Teams Quiller Hand Relationship Specialty Start Date End Date Brain Benoit MD PCP - General 01/01/11 04/10/14 [address] [place] [address] documented as of this encounter
--- OUTSIDE RECORDS SUMMARY | 2022-05-08 13:50 | XMS_ITS | Encounter Summary ---
:1975 Author Organization [facility] Address [address] [place] [address] Care Team Providers Name Role Phone Brian Benoit MD Primary Care Provider Encounter Details Date Type Department Care Team Description 04/13/2010 Office Visit [facility] Doron Crow, [address] [place] [address] 1415 [facility] [phone] [place], [place] [address] (Wo rk) Social History Tobacco Use Types Packs/Day Years Used Date Smoking Tobacco: Never Assessed Sex Assigned at Date Recorded Not on file documented as of this encounter Last Filed Vital Signs Vital Sign Reading Time Taken Comments Blood Pressure 118/70 04/13/2010 2:25 PM CDT Pulse 68 04/13/2010 2:25 PM CDT Temperature - - Respiratory Rate - - Oxygen Saturation - - Inhaled Oxygen Concentration - - Weight 67.6 kg (148 lb 15.8 oz) 04/13/2010 2:25 PM C: 6 7.6kg CDT Height 175.3 cm (5' 9) 04/13/2010 9:51 AM C: 175.3cm CDT Body Mass Index 22 04/13/2010 9:51 AM CDT documented in this encounter Progress Notes Doron Crow MBBS - 04/13/2010 12:01 AM CDT Progress Notes signed by ADAIR Avalos at 04/13/10 1554 Author: ADAIR Avalos Service: (none) Author Type: Physician Filed: 01/19/11 8071 Note Time: 04/13/10 0001 Status: Signed Field Collector: ADAIR Avalos (Resource) SUBJECTIVE: This is a 34-year-old woman who presented with a myriad of symptoms which includes menstrual irregularities, crampy it, pain,t general achiness and low-grade fevers which occur in the morning. All the symptoms have been going on for approximately 6 months now. She did see [facility] this morning and has been scheduled now for a pelvic ultrasound and GC Chlamydia cultures I will also be getting an endometrial biopsy. Is obvious however at that all of her symptoms can be explained as part of a gynecologic condition. She denies any nausea or vomiting, constipation, diarrhea or any other gastrointestinal symptoms associated to her symptoms. No respiratory symptoms and no sore throat. Past medical history: Unremarkable noncontributory. Family history : Is negative for any chronic diseases. No history of thyroid issues Medications: Reviewed. See Medication List in LastWord. Adverse Drug Reactions: Reviewed in health profile in LastWord. Review of systems : Denies any tachycardia. Has had no significant weight changes in the last 6 months. SOCIAL HISTORY :She is with 3 children. Does not smoke and drinks maybe once a week. OBJECTIVE: Vital Signs : Weight 149 pounds. Blood pressure 118/70. Pulse 70. Head: Normocephalic. Eyes: PERRLA, full EOM. External exams normal. Ears: Normal pinnae, canals, and TM's. Nose: Patent, without deformity. Throat: Moist mucous membranes without lesions, erythema, or exudate. Neck: Supple, without masses, lymphadenopathy or tenderness. Respiratory: Normal respiratory effort. Lungs are clear with good breath sounds. Heart: RR without murmurs, rubs, or gallops. Abdomen: The abdomen was flat, soft and nontender without guarding rebound or masses. Extremities: No edema no clubbing or cyanosis. ASSESSMENT: This is a 34-year-old woman with a constellation of symptoms that may or may not be linked to the fact that she is having menstrual irregularities. We have discussed a wide differential diagnosis which could include thyroid issues, Lyme's disease, anemia and diabetes among other things. PLAN: We have agreed to do have [facility] follow and treat your issues with her menstrual cycle and we will order a battery of tests including a fasting glucose, TSH, CBC, Lyme screen, and vitamin D. levels to assess possible causes of fatigue and general malaise patient is complaining about. The patient will return to the clinic after she was done the labs to review results and determine the next step in her workup. The patient was discharged ambulatory and in stable condition. *SH~DNS~SOAP documented in this encounter Plan of Treatment Not on filedocumented as of this encounter Visit Diagnoses Not on filedocumented in this encounter Care Teams Outside Physical Damage Appraiser Relationship Specialty Start Date End Date Brain Benoit MD PCP - General 01/01/11 04/10/14 [address] [place] [address] documented as of this encounter
--- OUTSIDE RECORDS SUMMARY | 2022-05-08 13:50 | XMS_ITS | Encounter Summary ---
:1975 Author Organization [facility] Address [address] [place] [address] Care Team Providers Name Role Phone Brain Benoit MD Primary Care Provider Encounter Details Date Type Department Care Team Description 04/13/2010 Office Visit [place] 1515 Yoseph Rabago, Obstetrics/Gynecolog y 1515 [facility] . 1515 [facility] [place] [address] 200 [place], [place] [address] (Wo rk) Social History Tobacco Use Types Packs/Day Years Used Date Smoking Tobacco: Never Assessed Sex Assigned at Date Recorded Not on file documented as of this encounter Progress Notes Yoseph Rabago MD - 04/13/2010 12:01 AM CDT Progress Notes signed by Yoseph Rabago MD at 04/13/10 1117 Author: Yoseph Rabago MD Service: (none) Author Type: Physician Filed: 01/19/11 7065 Note Time: 04/13/10 0001 Status: Signed Lace Roller Operator: Yoseph Rabago MD (Physician) SUBJECTIVE: CHIEF COMPLAINT: Irregular menses Dysmenorrhea Dyspareunia HISTORY: 34 YOF [id number] LMP ? 03/29/2010 Patient uses a vasectomy for contraception. Patient is tearful. She presents with a six month history of irregular menses. She gets her normal menses and then has other episodes of spotting or light bleeding during the month that last 1-4 days. She has also had painful menses and pain with intercourse. She also states she gets a low grade fever (99-100) every night. She denies problems with her bowels or urine. 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 LAB: Urine hCG - Negative OBJECTIVE: VS: BP: 122/80 HT: 69 in WT: 148.9 lb BMI: 21.9 Exam performed with a nurse in the room. BACK: Spine straight, no CVA tenderness ABD: Well healed incision, no masses, no rebound, no guarding PELVIC: Ext Gen - WNL BUS - no infection Vagina - small amount of blood Cervix - Pap, GC, Chlamydia Uterus - retro, firm, mobile, normal size Adenexa - clear bilaterally IMPRESSION: Abnormal Uterine Bleeding Dysmenorrhea Dyspareunia PLAN: Diagnosis discussed with patient. GC and Chlamydia - call if positive, letter if negative. Further diagnostic evaluation discussed with patient. Recommend pelvic ultrasound. F/U after US for results and endometrial biopsy Questions answered, patient agrees with plan. Yoseph Rabago MD documented in this encounter Plan of Treatment Not on filedocumented as of this encounter Visit Diagnoses Not on filedocumented in this encounter Care Teams Physician Surgeon Relationship Specialty Start Date End Date Brain Benoit MD PCP - General 01/01/11 04/10/14 [address] [facility] [place] [address] documented as of this encounter
--- OUTSIDE RECORDS SUMMARY | 2022-05-08 13:50 | XMS_ITS | Encounter Summary ---
:1975 Author Organization [facility] Address [address] [place] [address] Care Team Providers Name Role Phone Unavailable Primary Care Provider Unavailable Encounter Details Date Type Department Care Team Description 03/23/2018 Medical Correspondence [facility] Scan, CLINIC REFERRAL Health Info [facility] Non-Provider FAMILY [facility] [address] [place] [phone] Social History Tobacco Use Types Packs/Day Years Used Date Never Assessed Sex Assigned at Date Recorded Not on file documented as of this encounter Plan of Treatment Not on filedocumented as of this encounter Visit Diagnoses Not on filedocumented in this encounter
--- OUTSIDE RECORDS SUMMARY | 2022-05-08 13:50 | XMS_ITS | Encounter Summary ---
:1975 Author Organization [facility] Address [address] [place] [address] Care Team Providers Name Role Phone Brendon Arroyo MD Primary Care Provider Encounter Details Date Type Department Care Team Description 11/29/2009 PN Conversion Only [facility] CONVERSION Brendon Arroyo, 1415 [facility] [place] [address] [facility] [place] [address] (Wo rk) Social History Tobacco Use Types Packs/Day Years Used Date Smoking Tobacco: Never Assessed Sex Assigned at Date Recorded Not on file documented as of this encounter Plan of Treatment Not on filedocumented as of this encounter Procedures Procedure Name Priority Date/Time Associated Diagnosis Comme nts STREP GROUP A Routine 11/29/2009 4:33 PM Results for this ANTIGEN TEST MATERIALS TECH procedure are i n the results section. BETA STREP FOLLOWUP Routine 11/29/2009 4:33 PM Re sults for this MATERIALS TECH procedure are i n the results section. documented in this encounter Results Strep Group A Antigen Test (11/29/2009 4:33 PM MATERIALS TECH) Analysis Performed At [facility] Time Signature Strep Group A SEE TEXT HP CONVERSION Antigen Test Comment: RSS Rapid Strep Screen ? ORDERED BY: BRENDON ARROYO SOURCE: Throat ? COLLECTED: ??11/29/09 16:33 ? PLATED: ? 11/29/09 16:35 Rapid Strep Screen ? FINAL ? 11/29/09 16:36 ??Test performed by:salded ? Negative for Streptococcus group A Specimen (Source) Anatomical Collection Method Collection Time Re ceived Time Location / / Volume Laterality 11/29/2009 4:33 PM MATERIALS TECH Brendon Arroyo MD LAB_1 Performing Organization Address City/[facility]/ZIP Code Phon e Number HP CONVERSION Beta Strep Followup (11/29/2009 4:33 PM MATERIALS TECH) athologist Signature Strep Screen SEE TEXT HP CONVERSION Comment: [facility] Culture Strep, Follow up from Rapid Test ? ORDERED BY: BRENDON ARROYO SOURCE: Throat ? COLLECTED: ??11/29/09 16:33 ? PLATED: ? 11/29/09 16:35 Culture Strep, Follow up from Rapid Test ?? FINAL ? 11/30/09 13:30 No beta hemolytic Streptococcus isolate d Specimen (Source) Anatomical Collection Method Collection Time Re ceived Time Location / / Volume Laterality 11/29/2009 4:33 PM MATERIALS TECH Brendon Arroyo MD LAB_1 Performing Organization Address City/State/ZIP Code Phon e Number HP CONVERSION documented in this encounter Visit Diagnoses Not on filedocumented in this encounter Care Teams Grain Commodity Manager Relationship Specialty Start Date End Date Brendon Arroyo MD PCP - General 01/01/11 04/10/14 1415 [facility] [place] [address] documented as of this encounter
--- OUTSIDE RECORDS SUMMARY | 2022-05-08 13:50 | XMS_ITS | Encounter Summary ---
:1975 Author Organization [facility] Address [address] [place] [address] Care Team Providers Name Role Phone Brain Benoit MD Primary Care Provider Encounter Details Date Type Department Care Team Description 11/21/2008 Office Visit [facility] Topher Bettencourt 1415 [facility] [place] [address] Social History Tobacco Use Types Packs/Day Years Used Date Smoking Tobacco: Never Assessed Sex Assigned at Date Recorded Not on file documented as of this encounter Last Filed Vital Signs Vital Sign Reading Time Taken Comments Blood Pressure 114/72 11/21/2008 1:02 PM SENIOR TECHNICAL ANALYST Pulse 92 11/21/2008 1:02 PM SENIOR TECHNICAL ANALYST Temperature 37.9 ??C (100.2 ??F) 11/21/2008 1:02 PM ORAL C: 37.9 C SENIOR TECHNICAL ANALYST Respiratory Rate - - Oxygen Saturation 100% 11/21/2008 1:02 PM SENIOR TECHNICAL ANALYST Inhaled Oxygen Concentration - - Weight 68 kg (149 lb 15.7 oz) 11/21/2008 1:02 PM C: 68. 0kg SENIOR TECHNICAL ANALYST Height - - Body Mass Index - - documented in this encounter Progress Notes Topher Bettencourt - 11/21/2008 12:01 AM CST Progress Notes signed by Topher Bettencourt PA-C at 11/21/08 1321 Author: Topher Bettencourt PA-C Service: (none) Author Type: Physician Silver Miner Blasting Filed: 01/19/11 1116 Note Time: 11/21/08 0001 Status: Signed Industrial Renderer: Topher Bettencourt PA-C (Physician Silver Miner Blasting) Acute Clinic Visit IMPRESSION: Acute Bacterial Bronchitis SUBJECTIVE: History of Present Illness: Symptom(s): Fever. Productive cough. Cough with disruption of sleep. Tightness in chest. No wheezing. Fever: Duration: 1 week. Max. temp. < 100.5 degrees F. Productive cough: Duration: 1 week. Symptom Trend: Worsening. Cough with disruption of sleep: Duration: 1 week. Tightness in chest: Duration: 1 week. Meds This Illness: OTC therapies Past History: No History of Respiratory Disease Tobacco: None. Adverse Drug Reactions: None. Chronic Medications: None. OBJECTIVE: Vital Signs: Vital Signs taken today were reviewed on the flowsheet in LastWord. General Appearance: Well-appearing Eyes: External exam is normal bilaterally Ears: Bilateral pinnae, canals and TMs normal Oropharynx: Normal, mucous membranes moist, tonsils symmetric without redness or exudate. Neck: Supple without significant adenopathy or thyromegaly Respiratory: Rhonchi present, Normal respiratory effort Cardiac: RRR without murmur Lab & X-Ray: Pulse oximetry: 100% ASSESSMENT: Acute Bacterial Bronchitis PLAN: Zithromax Z-Jose 250 mg. as directed Robitussin w/ cod. 1-2 tsp. q4 hrs. PRN cough at home Symptomatic care RTC PRN if not gradually improving *SH~PC~URIL ~[facility] Note completed on: 11/21/2008 1:21 PM OR TECHNICAL ANALYST documented in this encounter Plan of Treatment Not on filedocumented as of this encounter Visit Diagnoses Not on filedocumented in this encounter Care Teams Inventory Control Supervisor Relationship Specialty Start Date End Date Brain Benoit MD PCP - General 01/01/11 04/10/14 [facility]5 [facility] [place] [address] documented as of this encounter
--- OUTSIDE RECORDS SUMMARY | 2022-05-08 13:50 | XMS_ITS | Encounter Summary ---
:1975 Author Organization [facility] Address [address] [place], [place] [address] [place] [address] Care Team Providers Name Role Phone Brendon Arroyo MD Primary Care Provider Encounter Details Date Type Department Care Team Description 02/16/2009 Office Visit [place] 1515 General Marciano Vera MD Surgery 1415 [facility] 1515 [facility] [place] [address] [place] [address] [phone] Social History Tobacco Use Types Packs/Day Years Used Date Smoking Tobacco: Never Assessed Sex Assigned at Date Recorded Not on file documented as of this encounter Last Filed Vital Signs Vital Sign Reading Time Taken Comments Blood Pressure 106/76 02/16/2009 9:52 AM CDT Pulse 60 02/16/2009 9:52 AM CDT Temperature - - Respiratory Rate - - Oxygen Saturation - - Inhaled Oxygen Concentration - - Weight 70.3 kg (154 lb 15.7 oz) 02/16/2009 9:52 AM C: 7 0.3kg CDT Height 176.5 cm (5' 9.5) 02/16/2009 9:52 AM C: 176.5cm CDT Body Mass Index 22.56 02/16/2009 9:52 AM CDT documented in this encounter Progress Notes Brendon Vera MD - 02/16/2009 12:01 AM CDT Progress Notes signed by Brendon Vera MD at 02/22/09 0951 Author: Brendon Vera MD Service: (none) Author Type: Physician Filed: 01/19/11 1338 Note Time: 02/16/09 0001 Status: Signed Inspector And Mender: Brendon Vera MD (Physician) NAME: ARELIS MCKENNA MR#: [id number] ACCT: [id number] VISIT: [id number] DICTATING CLINICIAN: BRENDON VERA MD CONFIRM #: [id number] LOC: 3288 CLINIC PROGRESS NOTE DATE OF VISIT: 02/16/2009 SUBJECTIVE: : 1975. I am seeing this patient at the request of Dr. Arroyo for a lipoma on the right chest. CHIEF COMPLAINT: Left chest wall mass. HISTORY OF PRESENT ILLNESS: This is a 33-year-old female who states that this mass has been present for several years. It has been slowly increasing in size. It has never had any overlying skin changes. It causes her some pain because it is right where her bra strap goes. It is now starting to become large, and it rubs against her arm and causes her some pain and discomfort. REVIEW OF SYSTEMS: She does occasionally get chest pain and irregular heart beats. She does get panic attacks. Otherwise, the rest of her review of systems is negative. ADR/ALLERGIES: NONE. MEDICATIONS: Ativan. PAST MEDICAL HISTORY: 1. History of hypoglycemia. 2. Status post appendectomy. FAMILY HISTORY: She has a grandfather with heart disease and stroke, and a mother with stroke. SOCIAL HISTORY: She is with 3 children. Does not smoke and drinks maybe once a week. OBJECTIVE: VS: BP: 106/76. P: 60. R: 16. Ht: 5 ft. 9 in. Wt: 155 lb. HEENT: Head: Normocephalic, atraumatic. Pupils equal, round, and reactive to light. SKIN: Without jaundice or rash. NEURO: Cranial nerves 2 through 12 are grossly intact. Motor and sensation are grossly intact. CHEST: On her right mid axillary line there is about a 2.5 to 3 cm mass. It is soft. It feels mobile. It feels consistent with a lipoma. EXTREMITIES: No cyanosis, clubbing or edema. ASSESSMENT: I have reviewed the patient's records and findings are consistent with right chest wall lipoma. PLAN: I talked to the patient about excising this. We can do this here in clinic with some local anesthesia or we can do it in the operating room with some sedation. She would prefer just to get it done, so we will plan to do that today. The risks, benefits, and alternatives, namely bleeding and infection were explained to the patient. She understands and wishes to proceed. PROCEDURE NOTE: The patient was prepped and draped in the usual sterile fashion. The area was infused with 1% lidocaine with epinephrine. A 2 cm incision was made over the area. I did eventually have to extend this to about 3 cm. First extending into the subcutaneous tissue, I found was what I felt was a lipoma and excised this. However, the lipoma was fairly deep. It was actually deep to her latissimus muscle. I was able to divide some of the muscle and identify the lipoma. I was able to dissect this out using scissors. I was able to completely excise it. It was a mass consistent with a lipoma. The wound was irrigated. The dermis closed with interrupted 3-0 Vicryl. The skin was closed with running 4-0 Vicryl. Benzoin, Steri-Strips, and sterile dressing was placed. The patient tolerated the procedure well and left with instructions for wound care. CC: BRENDON ARROYO MD DLG:[id number] C: 02/16/09 17:53 CONFIRM #: [id number] documented in this encounter Plan of Treatment Not on filedocumented as of this encounter Visit Diagnoses Not on filedocumented in this encounter Care Teams First Aid Trainer Relationship Specialty Start Date End Date Brendon Arroyo MD PCP - General 01/01/11 04/10/14 [facility]8 [facility] [place] [address] documented as of this encounter
--- OUTSIDE RECORDS SUMMARY | 2022-05-08 13:50 | XMS_ITS | Encounter Summary ---
:1975 Author [facility] Address [address] [place] [address] Care Team Providers Name Role Phone Brain Benoit MD Primary Care Provider Encounter Details Date Type Department Care Team Description 11/29/2009 Office Visit [facility] Brain Benoit MD 1415 [facility] . 1415 [place] [address] [place] [address] [phone] (Wo rk) Social History Tobacco Use Types Packs/Day Years Used Date Smoking Tobacco: Never Assessed Sex Assigned at Date Recorded Not on file documented as of this encounter Last Filed Vital Signs Vital Sign Reading Time Taken Comments Blood Pressure 116/70 11/29/2009 4:04 PM MEDICAL RECORD CONSULTANT Pulse 68 11/29/2009 4:04 PM MEDICAL RECORD CONSULTANT Temperature 36.3 ??C (97.3 ??F) 11/29/2009 4:04 PM MEDICAL RECORD CONSULTANT C: 36 .3 C Respiratory Rate - - Oxygen Saturation - - Inhaled Oxygen Concentration - - Weight 66.7 kg (146 lb 15.7 oz) 11/29/2009 4:04 PM MEDICAL RECORD CONSULTANT C: 66.7kg Height - - Body Mass Index 21.71 11/21/2009 4:02 PM MEDICAL RECORD CONSULTANT documented in this encounter Progress Notes Brain Benoit MD - 11/29/2009 12:01 AM CST Progress Notes signed by Brain Benoit MD at 11/29/09 1731 Author: Brain Benoit MD Service: (none) Author Type: Physician Filed: 01/19/112036 Note Time: 11/29/09 0001 Status: Signed Cattery Operator: Brain Benoit MD (Physician) Acute Clinic Visit IMPRESSION: Pharyngitis SUBJECTIVE: History of Present Illness: Symptom(s): Afebrile. No headache. No ear pain. No nasal congestion/rhinorrhea. Sore throat. No cough. No nausea. No vomiting. Sore throat: Duration: 2 weeks. Severity: Moderate. Symptom Trend: Stable. She did have a negative strep test done 1 week ago. No change since then. Pain is constant through the day, does respond to ibuprofen. No additional infectious symptoms. Acute Medications: Ibuprofen Past History: No History of Respiratory Disease Tobacco: None Alcohol: None. Adverse Drug Reactions: None. Chronic Medications: reviewed and updated today on Health Profile in the Electronic Medical Record. OBJECTIVE: Vital Signs: Vital Signs taken today were reviewed on the flowsheet in the Electronic Medical Record. General: Well-appearing in NAD. Eyes: External exam is normal bilaterally. Ears: Bilateral pinnae, canals and TMs normal. Nose/sinuses: Nose clear, no sinus tenderness Oropharynx: Normal, mucous membranes moist, tonsils symmetric without redness or exudate. Neck: Supple without significant adenopathy or thyromegaly. Respiratory: Lung sounds clear to auscultation without respiratory distress. Cardiac: RRR without murmur. Lab & X-Ray: Rapid strep test is negative. ASSESSMENT: Pharyngitis PLAN: Reassurance given, would expect resolution within the next 1-2 weeks Symptomatic care with OTC medications for comfort Ibuprofen Nutritious liquids RTC PRN if not gradually improving *SH~PC~QP ~[facility] Note completed on: 11/29/2009 5:30 PM CAL RECORD CONSULTANT documented in this encounter Plan of Treatment Not on filedocumented as of this encounter Visit Diagnoses Not on filedocumented in this encounter Care Teams Fish Tender Relationship Specialty Start Date End Date Brain Benoit MD PCP - General 01/01/11 04/10/[address] [place] [address] documented as of this encounter
--- OUTSIDE RECORDS SUMMARY | 2022-05-08 13:50 | XMS_ITS | Encounter Summary ---
:1975 Author Organization [facility] Address [address] [place] [address] Care Team Providers Name Role Phone Brain Benoit MD Primary Care Provider Encounter Details Date Type Department Care Team Description 04/14/2010 PN Conversion Only [place] CONVERSION Doron Crow [address] [facility] [place] [address] [address] [place], [place] [phone] (Wo rk) Social History Tobacco Use Types Packs/Day Years Used Date Smoking Tobacco: Never Assessed Sex Assigned at Date Recorded Not on file documented as of this encounter Plan of Treatment Not on filedocumented as of this encounter Procedures Procedure Name Priority Date/Time Associated Comments Diagnosis LYME WESTERN BLOT, Routine 04/14/2010 10:48 Resul ts for this CONFIRMATORY AM CDT procedure are i n the results section. GLUCOSE Routine 04/14/2010 10:48 Results for this AM CDT procedure are i n the results section. THYROID STIMULATING Routine 04/14/2010 10:48 Resu lts for this HORMONE AM CDT procedure are i n the results section. VITAMIN D 25 OH Routine 04/14/2010 10:48 Results for this AM CDT procedure are i n the results section. COMPLETE BLOOD Routine 04/14/2010 10:48 Results f or this COUNT-W/DIFF AM CDT procedure are i n the results section. LYME ANTIBODY (REFLEX Routine 04/14/2010 10:48 Re sults for this TO LYME CONFIRMATORY AM CDT procedu re are in PANEL) the results section. documented in this encounter Results Lyme Ab IgG, IgM by WB (04/14/2010 10:48 AM CDT) [facility] gist Method Time Signature Lyme Western Negative No normal HP CONVERSION Blot IgG range Comment: Band(s) present: NONE (Insufficient number of bands for positi ve result) TEST INFORMATION: Borrelia Burgdorferi A b, IgG Western Blot IgG Positive: ??Any 5 of the following 1 0 bands: 18, 23, 28, 30, 39, 41, 45, 58, 66, or 9 3 kDa. IgG Negative: ??Any pattern that does no t meet the IgG positive criteria. Lyme Western Blot IgM Negative No normal range HP CONVERSION Comment: Band(s) present: NONE (Insufficient number of bands for positi ve result) TEST INFORMATION: Borrelia Burgdorferi A b, IgM Western Blot IgM Positive: ??Any 2 of the following 3 bands: 23, 39, or 41 kDa. IgM Negative: ??Any pattern that does no t meet the IgM positive criteria. Performed at [facility] [address] [place] [address] 8 Specimen (Source) Anatomical Collection Method Collection Time Re ceived Time Location / / Volume Laterality 04/14/2010 10:48 AM CDT Doron Crow [facility]_1 Performing Organization Address City/[facility] Code Phon e Number HP CONVERSION Lyme Antibody, and Western Blot(If Needed) (04/14/2010 10:48 AM CDT) athologist Signature Lyme Screen see below Negative HP CONVERSION Comment: Equivocal This is screening test. ??If results are equivocal or positive, serum will be sent to [facility] ref erence lab for western blot confirmatory testing. Specimen (Source) Anatomical Collection Method Collection Time Re ceived Time Location / / Volume Laterality 04/14/2010 10:48 AM CDT Doron [facility] Performing Organization Address City/State/ZIP Code Phon e Number HP CONVERSION Hemogram/Plts/Diff (04/14/2010 10:48 AM CDT) athologist Signature White Blood Cell 4.5 3.8 - 11.0 HP CONVERSIO N Count k/cmm Red Blood Cell 4.95 3.70 - HP CONVERSION Count 5.20 m/cmm Hemoglobin 14.1 11.8 - HP CONVERSION 15.5 g/dL Hematocrit 41.7 35.0 - HP CONVERSION 46.0 % Mean Corpuscular 84.3 80.0 - HP CONVERSION Volume 100.0 fL RDW 12.7 11.0 - HP CONVERSION 15.0 % Platelet Count 249 140 - 450 HP CONVERSION k/cmm Absolute 2.6 2.0 - 6.8 HP CONVERSION Neutrophils k/cmm Absolute 1.4 1.0 - 4.0 HP CONVERSION Lymphocytes k/cmm Absolute 0.4 0.2 - 1.0 HP CONVERSION Monocytes k/cmm Absolute 0.1 0.0 - 0.5 HP CONVERSION Eosinophils k/cmm Absolute 0.0 0.0 - 0.2 HP CONVERSION Basophils k/cmm Specimen (Source) Anatomical Collection Method Collection Time Re ceived Time Location / / Volume Laterality 04/14/2010 10:48 AM CDT Doron Crow [facility] Performing Organization Address City/State/ZIP Code Phon e Number HP CONVERSION THYROID STIMULATING HORMONE (04/14/2010 10:48 AM CDT) athologist Signature Thyroid 1.91 0.20 - HP CONVERSION Stimulating 4.50 mIU/L Hormone Specimen (Source) Anatomical Collection Method Collection Time Re ceived Time Location / / Volume Laterality 04/14/2010 10:48 AM CDT Doron Crow [facility]_1 Performing Organization Address City/State/ZIP Code Phon e Number HP CONVERSION (ABNORMAL) VITAMIN D 25 OH (04/14/2010 10:48 AM CDT) athologist Signature Vitamin D 25 17 (L) 30 - 80 HP CONVERSION Oh ng/mL Comment: REFERENCE INTERVAL: Vitamin D, 25-Hydrox y This assay accurately quantifies the sum of vitamin D3, 25-hydroxy and vitamin D2, 25-hydroxy. 0-17 years: Deficiency: less than 20 ng/mL Optimum level: greater than or equal to 20 ng/mL* *(Quinteros CL et al. Pediatrics 2008; 122: 1128-38.) 18 years and older: Deficiency: Less than 20 ng/mL Insufficiency: 20-29 ng/mL Optimum Level: 30-80 ng/mL Possible Toxicity: Greater than 150 ng/m L Performed at [facility] [address] [place], [place] [address] 8 Specimen (Source) Anatomical Collection Method Collection Time Re ceived Time Location / / Volume Laterality 04/14/2010 10:48 AM CDT Doron Crow [facility] Performing Organization Address City/[facility]/ZIP Code Phon e Number HP CONVERSION GLUCOSE (04/14/2010 10:48 AM CDT) P athologist Signature Lab Glucose 81 60 - 100 HP CONVERSION mg/dL Specimen (Source) Anatomical Collection Method Collection Time Re ceived Time Location / / Volume Laterality 04/14/2010 10:48 AM CDT Doron Crow [facility]_1 Performing Organization Address City/[facility]/ZIP Code Phon e Number HP CONVERSION documented in this encounter Visit Diagnoses Not on filedocumented in this encounter Care Teams Electrical Systems Design Engineer Relationship Specialty Start Date End Date Brain Benoit MD PCP - General 01/01/11 04/10/14 [facility] [facility] [place] [address] documented as of this encounter
--- OUTSIDE RECORDS SUMMARY | 2022-05-08 13:50 | XMS_ITS | Encounter Summary ---
:1975 Author Organization [facility] Address [address] [place] [address] Care Team Providers Name Role Phone Brain Benoit MD Primary Care Provider Encounter Details Date Type Department Care Team Description 07/14/2009 Nursing Visit [facility] Kashif Ellsworth , Medicine [facility] [address] [place] [address] [place] [address] (Wo rk) Social History Tobacco Use Types Packs/Day Years Used Date Smoking Tobacco: Never Assessed Sex Assigned at Date Recorded Not on file documented as of this encounter Plan of Treatment Not on filedocumented as of this encounter Visit Diagnoses Not on filedocumented in this encounter Care Teams Last Scourer Relationship Specialty Start Date End Date Brain Benoit MD PCP - General 01/01/11 04/10/14 [address] [place] [address] documented as of this encounter
--- OUTSIDE RECORDS SUMMARY | 2022-05-08 13:50 | XMS_ITS | Encounter Summary ---
:1975 Author Organization [facility] Address [address] [place] [address] Care Team Providers Name Role Phone Brain Benoit MD Primary Care Provider Reason for Visit Reason Comments Other Encounter Details Date Type Department Care Team Description 11/21/2008 Telephone [facility] Judi Sarmiento Other [address] [facility] [place] [address] Social History Tobacco Use Types Packs/Day Years Used Date Smoking Tobacco: Never Assessed Sex Assigned at Date Recorded Not on file documented as of this encounter Progress Notes Judi Sarmiento - 11/21/2008 9:07 AM CST Phone Note filed by Judi Sarmiento RN at 01/17/11 4839 Author: Judi Sarmiento RN Service: (none) Author Type: (none) Filed: 01/17/112 Note Time: 11/21/08906 Status: Signed Ergonomic Specialist: Joe Conversion MESSAGE TO CARE TEAM NAME OF CALLER: Arelis NAME OF CLINICIAN:PNC MESSAGE: Has had fever since last Friday. Also has had a productive cough with clear phlegm. Has chest pain only with cough. Also has some pain when taking a deep breath. Does NOT currently have chest pain. No radiating chest pain. Denies SOB, nausea or lightheadedness. Temp today is 99.8. Coughs so hard she feels discomfort in abdomen when coughing. CALL BACK PHONE OR CELL PHONE: [phone] BEST TIME TO CALL BACK: IS IT OK TO LEAVE A CONFIDENTIAL MESSAGE ON THIS VOICEMAIL? y *ECODE~PNMSG Created on 21Nov2008 9:07am by JUDI SARMIENTO On 21Nov2008 9:09am JUDI SARMIENTO wrote: Addendum: Appt made for today at 1PM. Advised to be seen in ER if increased chest pain or SOB. N FINISHER documented in this encounter Plan of Treatment Not on filedocumented as of this encounter Visit Diagnoses Not on filedocumented in this encounter Care Teams Parking Inspector Relationship Specialty Start Date End Date Brain Benoit MD PCP - General 01/01/11 04/10/14 [address] [facility] [place] [address] documented as of this encounter
== END 2022-05-08 13:46 | disposition home or self-care (01) ==
LOC: NFLDREF 13:47
PROVIDERS: PCP Family Medicine; Visit Provider Surgery
DX: E06.0 Acute thyroiditis (principal)
CPT/HCPCS: 84443

== ENCOUNTER 2023-01-29 11:43 | Outpatient (CLI) | payer BC, SELFPAY | END 2023-01-29 11:44 | disposition home or self-care (01) | PROVIDERS: PCP Family Medicine; Visit Provider Family Medicine | DX: R10.9 Unspecified abdominal pain (principal); E66.01 Morbid (severe) obesity due to excess calories; R53.83 Other fatigue; R10.30 Lower abdominal pain, unspecified; Z13.6 Encounter for screening for cardiovascular disorders | CPT/HCPCS: 80053; 80061; 82150; 83690; 84443 ==

== ENCOUNTER 2023-03-12 14:20 | Outpatient (CLI) | payer BC, SELFPAY | END 2023-03-12 14:21 | disposition home or self-care (01) | LOC: NFLDREF 03-13 00:42 | PROVIDERS: PCP Family Medicine; Referring Provider Family Medicine; Visit Provider Registered Nurse | DX: E04.9 Nontoxic goiter, unspecified (principal) | CPT/HCPCS: 86140 ==

== ENCOUNTER 2023-05-01 14:25 | Outpatient (CLI) | payer BC, SELFPAY ==
--- NOTE | 2023-05-01 14:40 | CRLHL7_ITS ---
For Patients: As a result of the Cures Act, medical imaging exams and procedure reports are released immediately into your electronic medical record. You may view this report before your referring provider. If you have questions, please contact your health care provider. BILATERAL DIGITAL SCREENING MAMMOGRAM WITH COMPUTER-AIDED DETECTION, 05/01/2023 CLINICAL HISTORY: Routine screening exam. COMPARISON: 06/24/2017. TECHNIQUE: Digital mammogram in CC and MLO projections including computer-aided detection (CAD). BREAST COMPOSITION: Heterogeneously dense. FINDINGS: RIGHT Breast: Possible focus of architectural distortion within the lateral breast 9 o`clock 3 cm from the nipple. LEFT Breast: No suspicious findings. IMPRESSION: RIGHT breast asymmetry/mass. RECOMMENDATIONS: Additional mammographic views of the RIGHT breast including 3D spot-compression MLO and 3D XCCL. RIGHT breast ultrasound may also be required. A member of the radiology staff will be contacting the patient to arrange for this additional study. BI-RADS Category 0: Incomplete: Need Additional Imaging Evaluation and/or Prior Mammograms for Comparison Dictated by Cain Boo MD @ 05/02/2023 9:01:08 AM JIMBO/анна DW/Dictated by: Cain Boo MD @ 05/02/2023 9:01:00 AM (Electronically Signed)
== END 2023-05-01 14:26 | disposition home or self-care (01) ==
LOC: MAMMO 14:27
PROVIDERS: PCP Family Medicine; Visit Provider Registered Nurse
DX: Z12.31 Encounter for screening mammogram for malignant neoplasm of breast (principal); N63.10 Unspecified lump in the right breast, unspecified quadrant; R92.2 Inconclusive mammogram
CPT/HCPCS: 77063; 77067

== ENCOUNTER 2023-05-05 10:27 | Outpatient (CLI) | payer BC, SELFPAY ==
--- NOTE | 2023-05-05 10:45 | CRLHL7_ITS ---
For Patients: As a result of the Cures Act, medical imaging exams and procedure reports are released immediately into your electronic medical record. You may view this report before your referring provider. If you have questions, please contact your health care provider. DIGITAL DIAGNOSTIC RIGHT MAMMOGRAM USING TOMOSYNTHESIS AND COMPUTER-AIDED DETECTION RIGHT BREAST ULTRASOUND CLINICAL HISTORY: RIGHT breast mass/asymmetry. COMPARISON: 05/01/2023. TECHNIQUE: Digital RIGHT mammogram in two projections. Tomosynthesis and CAD utilized. Real-time ultrasound imaging of RIGHT breast with imaging documentation. BREAST COMPOSITION: The breast is heterogeneously dense, which may obscure small masses. FINDINGS: 3D XCCL and 3D spot compression MLO RIGHT breast mammogram images submitted. Persistent density with distortion located within the lateral RIGHT breast. Targeted sonogram RIGHT breast 9 o`clock 4 cm from the nipple performed. In this location there is a subtle slightly spiculated hypoechoic nodule which measures 5 x 7 x 4 millimeters. IMPRESSION: Suspicious 5 x 7 x 4 millimeter lesion RIGHT breast 9 o`clock 4 cm from the nipple. RECOMMENDATIONS: Ultrasound-guided core needle biopsy. Results and recommendations discussed with the patient. BI-RADS Category 4: Suspicious A lay language report of this examination will be provided to the patient. Dictated by Cain Boo MD @ 05/05/2023 11:48:59 AM /Dictated by: Cain Boo MD @ 05/05/2023 11:49:00 AM (Electronically Signed)
--- NOTE | 2023-05-05 11:15 | CRLHL7_ITS ---
For Patients: As a result of the Cures Act, medical imaging exams and procedure reports are released immediately into your electronic medical record. You may view this report before your referring provider. If you have questions, please contact your health care provider. PLEASE SEE DIGITAL DIAGNOSTIC RIGHT MAMMOGRAM PERFORMED SAME DAY CRL:angle barbour/Dictated by: Cain Boo MD @ 05/05/2023 11:49:00 AM (Electronically Signed)
== END 2023-05-05 10:28 | disposition home or self-care (01) ==
LOC: MAMMO 10:28
PROVIDERS: PCP Family Medicine; Visit Provider Family Medicine
DX: N63.10 Unspecified lump in the right breast, unspecified quadrant (principal); R92.8 Other abnormal and inconclusive findings on diagnostic imaging of breast
CPT/HCPCS: 76642; 77065; G0279

== ENCOUNTER 2023-05-06 08:03 | Outpatient (CLI) | payer BC, SELFPAY ==
--- NOTE | 2023-05-06 08:15 | CRLHL7_ITS ---
For Patients: As a result of the Century Cures Act, medical imaging exams and procedure reports are released immediately into your electronic medical record. You may view this report before your referring provider. If you have questions, please contact your health care provider. ULTRASOUND-GUIDED BREAST BIOPSY AND POST-BIOPSY DIGITAL MAMMOGRAM FOR BIOPSY MARKER PLACEMENT CLINICAL HISTORY: Suspicious nodule. COMPARISON STUDIES: 05/05/2023. TECHNIQUE: Real-time ultrasound with image documentation was used for targeting the breast lesion. Core biopsy specimens were obtained using an automated gun with a 18-gauge biopsy needle. Post-biopsy CC and ML digital mammograms were obtained to document position of the biopsy marker. CONSENT and TIME OUT: The procedure, risks, and alternatives were explained to the patient and a consent was signed. Union Protocol was followed including pre-procedure verification that relevant information/documentation was available, reviewed and properly matched to the patient; consent accurate and complete; and equipment and supplies available. Time Out was conducted just prior to starting procedure to verify the four required elements: patient identity, correct side/site marked (if applicable), procedure, relevant images/results properly labeled and displayed (if applicable). PROCEDURE: The patient was positioned supine on the ultrasound table. The breast was prepped with ChloraPrep. 8 cc of 1 percent lidocaine used for local anesthesia. Core samples were obtained. A sterile metal biopsy clip was placed percutaneously to shefali the lesion position within the breast. The specimens were placed in 10% formalin and sent to the pathology department. Pressure was held on the biopsy site until all bleeding subsided. The skin incision was closed with Steri-Strips. An ice pack was positioned over the biopsy site. Post-biopsy instructions were reviewed with the patient, and a written copy was given to her. LATERALITY: RIGHT breast. LESION: Micro lobulated hypoechoic solid nodule measuring 5 x 7 x 4 millimeters at 9 o`clock 4 cm from the nipple. SUSPICION FOR MALIGNANCY: High. NUMBER OF SAMPLES: 5. BIOPSY CLIP SHAPE: Oval. PROXIMITY OF CLIP TO TARGET: Within the lesion. IMPRESSION: Ultrasound-guided breast biopsy. When the pathology report is available, an addendum to this report will be made. ACR not applicable Dictated by Cain Boo MD @ 05/07/2023 12:45:07 PM jj/Dictated by: Cain Boo MD @ 05/07/2023 12:45:00 PM ADDENDUM: Pathology consistent with complex sclerosing lesion, i.e., radial scar. No atypia or malignancy. This is likely concordant, however, recommend consultation with surgery to consider localization and excision. Dictated by: Cain Boo MD @05/08/2023 10:53:33 AM / CRL:angle (Electronically Signed)
--- NOTE | 2023-05-06 09:00 | CRLHL7_ITS ---
For Patients: As a result of the Century Cures Act, medical imaging exams and procedure reports are released immediately into your electronic medical record. You may view this report before your referring provider. If you have questions, please contact your health care provider. PLEASE SEE ULTRASOUND-GUIDED RIGHT BREAST BIOPSY PERFORMED SAME DAY CRL:angle barbour/Dictated by: Cain Boo MD @ 05/07/2023 12:45:00 PM (Electronically Signed)
== END 2023-05-06 08:04 | disposition home or self-care (01) ==
LOC: US 08:03
PROVIDERS: PCP Family Medicine; Visit Provider Family Medicine
DX: N63.10 Unspecified lump in the right breast, unspecified quadrant (principal); R92.8 Other abnormal and inconclusive findings on diagnostic imaging of breast
CPT/HCPCS: 19083; 77065; 88305; 88341; 88342; A4648; A4649

== ENCOUNTER 2025-01-11 15:53 | Outpatient (CLI) | payer BC, SELFPAY | END 2025-01-11 15:54 | disposition home or self-care (01) | PROVIDERS: PCP Family Medicine; Visit Provider Family Medicine | DX: E06.1 Subacute thyroiditis (principal); R00.2 Palpitations; N92.1 Excessive and frequent menstruation with irregular cycle; Z13.6 Encounter for screening for cardiovascular disorders; Z13.21 Encounter for screening for nutritional disorder | CPT/HCPCS: 80053; 80061; 82607; 82728; 84443 ==

== ENCOUNTER 2025-01-26 14:49 | Outpatient (CLI) | payer BC, SELFPAY | END 2025-01-26 14:50 | disposition home or self-care (01) | LOC: RAD 14:50 | PROVIDERS: PCP Family Medicine; Visit Provider Family Medicine | DX: R00.2 Palpitations (principal) | CPT/HCPCS: 93306 ==

== ENCOUNTER 2025-04-13 15:01 | Outpatient (CLI) | payer BC, SELFPAY ==
--- NOTE | 2025-04-13 15:20 | CRLHL7_ITS ---
For Patients: As a result of the Century Cures Act, medical imaging exams and procedure reports are released immediately into your electronic medical record. You may view this report before your referring provider. If you have questions, please contact your health care provider. INDICATION: BILATERAL SCREENING MAMMOGRAM, ASYMPTOMATIC 49 Y/O FEMALE COMPARISON: 05/06/2023, 05/05/2023, 05/01/2023 TECHNIQUE: Digital mammogram in CC and MLO projections including computer-aided detection (CAD) and tomosynthesis. BREAST COMPOSITION: The breasts are heterogeneously dense, which may obscure small masses. FINDINGS: No suspicious findings. ASSESSMENT: BI-RADS 2 Benign RECOMMENDATION: Annual screening mammogram. A lay language report of this examination will be provided to the patient. Dictated by: Cain Boo MD @ 04/14/2025 13:24:43 (Electronically Signed)
== END 2025-04-13 15:02 | disposition home or self-care (01) ==
LOC: MAMMO 15:01
PROVIDERS: PCP Family Medicine; Visit Provider Family Medicine
DX: Z12.31 Encounter for screening mammogram for malignant neoplasm of breast (principal); R92.333 Mammographic heterogeneous density, bilateral breasts
CPT/HCPCS: 77063; 77067

== ENCOUNTER 2025-04-14 07:40 | Outpatient (CLI) | payer BC, SELFPAY | END 2025-04-14 07:41 | disposition home or self-care (01) | LOC: NFLDREF 04-15 12:37 | PROVIDERS: PCP Family Medicine; Referring Provider Family Medicine; Visit Provider Family Medicine | DX: R79.89 Other specified abnormal findings of blood chemistry (principal); E53.8 Deficiency of other specified B group vitamins; R00.2 Palpitations | CPT/HCPCS: 82306; 82607 ==